=== PATIENT | male | born 1930 | race Asian ===

== ENCOUNTER 2016-09-20 17:09 | Emergency (ER) | payer MEDICARE, MEDICAID ==
[~2016-09-20] VITALS: Ht 175.3 cm; Wt 65.3 kg
[2016-09-20 18:03] VITALS: BP 101/52
[2016-09-20 18:05] LABS: BASOPHILS % (AUTO) 0.6 % (0.0-2.0); EOSINOPHILS % (AUTO) 3.8 % (0.0-3.0); MEAN CORPUSCULAR HEMOGLOBIN 32.2 PG (27.0-31.0); MEAN CORPUSCULAR HGB CONC 34.2 G/DL (32.0-36.0); MEAN CORPUSCULAR VOLUME 94 FL (80-99); MEAN PLATELET VOLUME 5.9 FL (6.5-10.1); MONOCYTES % (AUTO) 10.1 % (1.0-10.0); NEUTROPHILS % (AUTO) 51.4 % (45.0-75.0); PLATELET COUNT 193 K/UL (150-450); RED BLOOD COUNT 3.97 M/UL (4.70-6.10); WHITE BLOOD COUNT 3.9 K/UL (4.8-10.8)
[2016-09-20 18:12] LABS: APPEARANCE,URINE CLOUDY; KETONES,URINE NEGATIVE (NEGATIVE); LEUKOCYTE ESTERASE ,URINE NEGATIVE (NEGATIVE); NITRITE,URINE NEGATIVE (NEGATIVE); PH,URINE 5 (4.5-8.0); PROTEIN,URINE 2+ (NEGATIVE); UROBILINOGEN,URINE NORMAL MG/DL (0.0-1.0)
[2016-09-20 18:13] LABS: BACTERIA,URINE FEW /HPF; RBC,URINE TNTC /HPF (0 - 0); WBC,URINE 0-2 /HPF (0 - 0)
[2016-09-20 18:17] LABS: INR 1.6 (0.9-1.1); PROTHROMBIN TIME 16.3 SEC (9.30-11.50)
[2016-09-20 18:18] LABS: ALANINE AMINOTRANSFERASE 21 U/L (3-41); ALBUMIN/GLOBULIN RATIO 1.5 (1.0-2.7); ANION GAP 15 (5-15); ASPARTATE AMINO TRANSFERASE 24 U/L (5-40); CALCIUM 8.8 mg/dL (8.6-10.2); CARBON DIOXIDE 24 mEQ/L (20-30); CHLORIDE 98 mEQ/L (98-107); CREATININE 1.4 mg/dL (0.7-1.2); HEMOLYSIS 5; LIPASE 66 U/L (< 60); POTASSIUM 4.4 mEQ/L (3.4-4.9); SODIUM 137 mEQ/L (135-145); TOTAL PROTEIN 6.9 g/dL (6.6-8.7)
--- NOTE | 2016-09-20 19:21 | Emergency Room Report ---
History of Present Illness General Chief Complaint: Male Urogenital Problems Source: Patient Present Illness HPI Patient is a 85-year-old male who presented after increased gross hematuria. Patient had gradual onset of symptoms. The was noted to have been seen by urologist and had been started on antibiotics. The patient not having any fever. He had a moderate amount of blood in his urine. Having increased urinary hesitancy. The patient been taking Augmentin. He denied any recent fever or vomiting. Allergies: Coded Allergies: No Known Allergies (Unverified , 09/20/16) Patient History Past Medical History: see triage record Reviewed Nursing Documentation: PMH: Agreed, PSxH: Agreed Nursing Documentation-PMH Past Medical History: No History, Except For Hx Hypertension: Yes Review of Systems All Other Systems: negative except mentioned in HPI Physical Exam Vital Signs Date Time Temp Pulse Resp B/P Pulse Ox O2 Delivery O2 Flow Rate FiO2 09/20/16 17:18 97.5 72 15 112/67 98 Room Air Sp02 EP Interpretation: reviewed, normal General Appearance: normal inspection, well appearing, no apparent distress, alert, GCS 15 Head: atraumatic ENT: normal ENT inspection, hearing grossly normal, normal voice Neck: normal inspection, full range of motion, supple, no bony tend Respiratory: normal inspection, lungs clear, normal breath sounds, no respiratory distress, no retraction, no wheezing Cardiovascular #1: regular rate, rhythm, no edema Gastrointestinal: normal inspection, normal bowel sounds, non tender, soft, no guarding, no hernia, tenderness - suprapubic tenderness mild Genitourinary: no CVA tenderness Musculoskeletal: normal inspection, back normal, normal range of motion Neurologic: normal inspection, alert, oriented x3, responsive, vice president payment III-XII nml as tested, speech normal Psychiatric: normal inspection, judgement/insight normal, mood/affect normal Skin: normal inspection, normal color, no rash Medical Decision Making Diagnostic Impression: Primary Impression: Gross hematuria Additional Impression: Prostatic disease ER Course The patient presented for hematuria. Differential diagnosis included was not limited to renal stone, cystitis, aortic aneurysm, renal artery dissection.CT abdomen pelvis read by radiology showed no hydronephrosis, no renal or ureteral calculi were noted. Patient noted to have a chronic appearing compression fracture of L3 and a mildly prominent prostate. The patient is advised followup with his urologist 1-2 days. Patient is advised to return if any worsening condition or if any changes in status that are concerning or increased difficulty voiding.. Labs Test 09/20/16 17:43 09/20/16 17:52 Urine Color Red Urine Appearance Cloudy Urine pH 5 (4.5-8.0) Urine Specific [place] 1.010 (1.005-1.035) Urine Protein 2+ (NEGATIVE) Urine Glucose (UA) Negative (NEGATIVE) Urine Ketones Negative (NEGATIVE) Urine Occult Blood 5+ (NEGATIVE) Urine Nitrite Negative (NEGATIVE) Urine Bilirubin Negative (NEGATIVE) Urine Urobilinogen Normal MG/DL (0.0-1.0) Urine Leukocyte Esterase Negative (NEGATIVE) Urine RBC Tntc /HPF (0 - 0) Urine WBC 0-2 /HPF (0 - 0) Urine Squamous Epithelial Cells None /LPF (NONE/OCC) Urine Bacteria Few /HPF (NONE) White Blood Count 3.9 K/UL (4.8-10.8) Red Blood Count 3.97 M/UL (4.70-6.10) Hemoglobin 12.8 G/DL (14.2-18.0) Hematocrit 37.3 % (42.0-52.0) Mean Corpuscular Volume 94 FL (80-99) Mean Corpuscular Hemoglobin 32.2 PG (27.0-31.0) Mean Corpuscular Hemoglobin Concent 34.2 G/DL (32.0-36.0) Red Cell Distribution Width 11.0 % (11.6-14.8) Platelet Count 193 K/UL (150-450) Mean Platelet Volume 5.9 FL (6.5-10.1) Neutrophils (%) (Auto) 51.4 % (45.0-75.0) Lymphocytes (%) (Auto) 34.0 % (20.0-45.0) Monocytes (%) (Auto) 10.1 % (1.0-10.0) Eosinophils (%) (Auto) 3.8 % (0.0-3.0) Basophils (%) (Auto) 0.6 % (0.0-2.0) Prothrombin Time 16.3 SEC (9.30-11.50) Prothromb Time International Ratio 1.6 (0.9-1.1) Activated Partial Thromboplast Time 42 SEC (23-33) Sodium Level 137 mEQ/L (135-145) Potassium Level 4.4 mEQ/L (3.4-4.9) Chloride Level 98 mEQ/L (98-107) Carbon Dioxide Level 24 mEQ/L (20-30) Anion Gap 15 (5-15) Blood Urea Nitrogen 32 mg/dL (7-23) Creatinine 1.4 mg/dL (0.7-1.2) Estimat Glomerular Filtration Rate mL/min (>60) Glucose Level 144 mg/dL (74-106) Calcium Level 8.8 mg/dL (8.6-10.2) Total Bilirubin 0.4 mg/dL (0.0-1.2) Aspartate Amino Transf (AST/SGOT) 24 U/L (5-40) Alanine Aminotransferase (ALT/SGPT) 21 U/L (3-41) Alkaline Phosphatase 50 U/L (40-129) Total Protein 6.9 g/dL (6.6-8.7) Albumin 4.2 g/dL (3.5-5.2) Globulin 2.7 g/dL Albumin/Globulin Ratio 1.5 (1.0-2.7) Lipase 66 U/L (< 60) Last Vital Signs Date Time Temp Pulse Resp B/P Pulse Ox O2 Delivery O2 Flow Rate FiO2 09/20/16 18:03 97.9 63 19 101/52 95 Room Air Status: improved Disposition: HOME, SELF-CARE Condition: Stable Michele Barnes Sep 20, 2016 19:21
[2016-09-20] MEDS ORDERED: cefTRIAXone 1 GM in NS 55 ML IVPB ONE (19:30)
[2016-09-20 19:39] VITALS: BP 115/46
[2016-09-20 20:06] VITALS: BP 112/45
--- NOTE | 2016-09-21 08:56 | Diagnostic Imaging Report ---
\H\CT Abdomen and Pelvis Date of service: 09/20/16. Indication: Gross hematuria and pain. Comparison: None available. Technique: Utilizing a multislice CT scanner, a CT of the abdomen and pelvis was performed without intravenous contrast. All CT scans at this facility use dose modulation, iterative reconstruction, and/or weight based dosing when appropriate to reduce radiation dose to as low as reasonably achievable. CTDIvol (mGy): 12 DLP (mGy-cm): 720 Findings: Lack of intravenous contrast limits evaluation of the visceral and vascular structures. The visualized lung bases exhibit mild atelectasis and scarring with a small calcified granuloma in the right lower lobe. The heart is mildly enlarged. Atherosclerotic calcification of the coronary arteries is noted. The liver is unremarkable. The gallbladder is unremarkable. The pancreas, spleen and adrenal glands are unremarkable. No calculus is identified within either kidney, along the expected course of the ureters or within the urinary bladder. There is no evidence of hydronephrosis. Moderate bilateral perirenal stranding suggesting inflammatory change or or scarring is noted. Please correlate with urinalysis to exclude an active urinary tract infection. The urinary bladder is moderately distended and appears grossly unremarkable. The prostate gland appears slightly enlarged and heterogeneous. Scattered diverticulosis without evidence of acute diverticulitis. There is no evidence of obstruction. There is no extraluminal gas or fluid. Probable calcified lymph node is noted in the upper abdomen posteriorly. There is moderate calcified atherosclerotic disease of the the abdominal aorta. Moderate degenerative changes of the thoracolumbar spine noted. There is moderate compression deformity of L3 vertebral body of unknown chronicity. \N\\H\Impression: 1. No evidence of obstructive uropathy, nephroureterolithiasis, or hydronephrosis. Moderate bilateral perinephric stranding is nonspecific but may reflect inflammatory change or scarring. Please correlate with clinical parameters and urinalysis to exclude active infection. 2. Mildly enlarged and heterogeneous prostate gland. Please correlate with physical exam findings and PSA levels. 3. Diverticulosis without evidence of acute diverticulitis. 4. Moderate compression deformity of L3 vertebral body of unknown chronicity. 5. Other nonacute findings as detailed above. \N\
== END 2016-09-20 20:10 | disposition home or self-care (01) ==
LOC: EMR 17:46
DX: R31.0 Gross hematuria (principal); N42.9 Disorder of prostate, unspecified; I10 Essential (primary) hypertension
CPT/HCPCS: 36415; 74176; 80053; 81003; 83690; 85025; 85610; 85730; 96360; 96374; 99284; J0696; J2405

== ENCOUNTER 2016-09-22 17:01 | Inpatient (IN) | payer MEDICARE, MEDICAID ==
[~2016-09-22] VITALS: Ht 177.8 cm; Wt 70.3 kg
[2016-09-22 17:36] VITALS: BP 114/52
--- NOTE | 2016-09-22 17:51 | Emergency Room Report ---
History of Present Illness General Chief Complaint: Male Urogenital Problems Source: Patient Present Illness HPI Patient presents with complaints of urinary retention Along with blood in the urine The patient denies any headache visual changes denies any chest pain or shortness of breath He has increased pressure in the suprapubic area Denies any recent fall or trauma Approximately 2 years ago the patient had some similar symptoms He does have a urologist which is following him There was question of some prostate pathology However the patient is somewhat poor historian regarding his history Denies any back or flank pain Allergies: Coded Allergies: No Known Allergies (Unverified , 09/20/16) Patient History Past Medical History: see triage record Pertinent Family History: none Reviewed Nursing Documentation: PMH: Agreed, PSxH: Agreed Nursing Documentation-PMH Past Medical History: No History, Except For Hx Hypertension: Yes Review of Systems All Other Systems: negative except mentioned in HPI Physical Exam Vital Signs Date Time Temp Pulse Resp B/P Pulse Ox O2 Delivery O2 Flow Rate FiO2 09/22/16 17:22 98.4 74 14 114/52 97 Room Air Sp02 EP Interpretation: reviewed, normal General Appearance: well appearing, no apparent distress Head: normocephalic, atraumatic Eyes: bilateral eye EOMI, bilateral eye PERRL ENT: hearing grossly normal, normal pharynx, TMs + canals normal, uvula midline Neck: full range of motion, supple, no meningismus, no bony tend Respiratory: lungs clear, normal breath sounds, no rhonchi, no respiratory distress, no retraction, no accessory muscle use Cardiovascular #1: normal peripheral pulses, regular rate, rhythm, no edema, no gallop, no JVD, no murmur Gastrointestinal: normal bowel sounds, non tender, soft, no mass, no organomegaly, non-distended, no guarding, no hernia, no pulsatile mass, no rebound Genitourinary: no CVA tenderness Musculoskeletal: normal inspection Neurologic: oriented x3, responsive, wrestling coach III-XII nml as tested, motor strength/ tone normal, sensory intact Psychiatric: mood/affect normal Skin: normal color, no rash, warm/dry, palpation normal Lymphatic: normal inspection, no adenopathy Medical Decision Making Diagnostic Impression: Primary Impression: Renal insufficiency Additional Impressions: Urinary retention Hematuria ER Course Patient's pharmacy was contacted at [phone] There was no contact and there was no picker and packer Given the patient's history examined presentation concerning for multiple differentials patient had CAT scan imaging obtained showing inflammatory changes bilaterally in the kidneys Urine sample does show some white blood cells Pending further inpatient antibiotic coverage Patient also had consult obtained by urology and admitted for further inpatient care Labs Test 09/22/16 17:50 09/22/16 18:10 09/23/16 04:45 09/23/16 05:10 White Blood Count 5.0 K/UL (4.8-10.8) 5.3 K/UL (4.8-10.8) Red Blood Count 4.00 M/UL (4.70-6.10) 3.49 M/UL (4.70-6.10) Hemoglobin 13.1 G/DL (14.2-18.0) 11.3 G/DL (14.2-18.0) Hematocrit 37.9 % (42.0-52.0) 32.9 % (42.0-52.0) Mean Corpuscular Volume 95 FL (80-99) 94 FL (80-99) Mean Corpuscular Hemoglobin 32.7 PG (27.0-31.0) 32.3 PG (27.0-31.0) Mean Corpuscular Hemoglobin Concent 34.5 G/DL (32.0-36.0) 34.3 G/DL (32.0-36.0) Red Cell Distribution Width 11.2 % (11.6-14.8) 11.1 % (11.6-14.8) Platelet Count 226 K/UL (150-450) 178 K/UL (150-450) Mean Platelet Volume 7.3 FL (6.5-10.1) 6.5 FL (6.5-10.1) Neutrophils (%) (Auto) 57.3 % (45.0-75.0) 71.0 % (45.0-75.0) Lymphocytes (%) (Auto) 30.7 % (20.0-45.0) 18.4 % (20.0-45.0) Monocytes (%) (Auto) 8.4 % (1.0-10.0) 7.5 % (1.0-10.0) Eosinophils (%) (Auto) 2.6 % (0.0-3.0) 2.5 % (0.0-3.0) Basophils (%) (Auto) 1.1 % (0.0-2.0) 0.7 % (0.0-2.0) Prothrombin Time 14.0 SEC (9.30-11.50) Prothromb Time International Ratio 1.4 (0.9-1.1) Activated Partial Thromboplast Time 36 SEC (23-33) Sodium Level 139 mEQ/L (135-145) 141 mEQ/L (135-145) Potassium Level 5.3 mEQ/L (3.4-4.9) 4.2 mEQ/L (3.4-4.9) Chloride Level 100 mEQ/L (98-107) 103 mEQ/L (98-107) Carbon Dioxide Level 24 mEQ/L (20-30) 26 mEQ/L (20-30) Anion Gap 15 (5-15) 12 (5-15) Blood Urea Nitrogen 28 mg/dL (7-23) 22 mg/dL (7-23) Creatinine 1.5 mg/dL (0.7-1.2) 1.1 mg/dL (0.7-1.2) Estimat Glomerular Filtration Rate mL/min (>60) mL/min (>60) Glucose Level 100 mg/dL (74-106) 91 mg/dL (74-106) Calcium Level 8.6 mg/dL (8.6-10.2) 8.1 mg/dL (8.6-10.2) Total Bilirubin 0.4 mg/dL (0.0-1.2) 0.4 mg/dL (0.0-1.2) Aspartate Amino Transf (AST/SGOT) 47 U/L (5-40) 26 U/L (5-40) Alanine Aminotransferase (ALT/SGPT) 33 U/L (3-41) 26 U/L (3-41) Alkaline Phosphatase 47 U/L (40-129) 44 U/L (40-129) Total Protein 7.4 g/dL (6.6-8.7) 5.9 g/dL (6.6-8.7) Albumin 4.4 g/dL (3.5-5.2) 3.7 g/dL (3.5-5.2) Globulin 3.0 g/dL 2.2 g/dL Albumin/Globulin Ratio 1.4 (1.0-2.7) 1.6 (1.0-2.7) Lipase 65 U/L (< 60) Urine Color Brown Pale yellow Urine Appearance Cloudy Turbid Urine pH 5 (4.5-8.0) 6.5 (4.5-8.0) Urine Specific [place] 1.015 (1.005-1.035) 1.010 (1.005-1.035) Urine Protein 3+ (NEGATIVE) 2+ (NEGATIVE) Urine Glucose (UA) Negative (NEGATIVE) Negative (NEGATIVE) Urine Ketones 1+ (NEGATIVE) Negative (NEGATIVE) Urine Occult Blood 5+ (NEGATIVE) 5+ (NEGATIVE) Urine Nitrite Negative (NEGATIVE) Negative (NEGATIVE) Urine Bilirubin Negative (NEGATIVE) Negative (NEGATIVE) Urine Urobilinogen 1 MG/DL (0.0-1.0) Normal MG/DL (0.0-1.0) Urine Leukocyte Esterase 2+ (NEGATIVE) 1+ (NEGATIVE) Urine RBC 20-30 /HPF (0 - 0) Tntc /HPF (0 - 0) Urine WBC 10-15 /HPF (0 - 0) 0-2 /HPF (0 - 0) Urine Squamous Epithelial Cells None /LPF (NONE/OCC) None /LPF (NONE/OCC) Urine Amorphous Sediment Few /LPF (NONE) Urine Bacteria Many /HPF (NONE) Few /HPF (NONE) Urine Yeast Moderate /HPF (NONE) Uric Acid 4.1 mg/dL (3.0-7.5) Phosphorus Level 3.1 mg/dL (2.5-4.8) Magnesium Level 2.0 mg/dL (1.7-2.5) Total Creatine Kinase 76 U/L (38-174) Thyroid Stimulating Hormone (TSH) 4.800 uIU/mL (0.300-4.500) Free Thyroxine 1.41 ng/dL (0.86-1.85) Free Triiodothyronine 2.1 pg/mL (2.3-4.2) Urine Eosinophils Few Urine Random Sodium 103 mmol/L Urine Random Chloride 92 mmol/L Urine Potassium Timed 25 mmol/L Rhythm Strip Diag. Results EP Interpretation: yes Rate: 67 Rhythm: NSR, no PVC's, no ectopy CT/MRI/US Diagnostic Results CT/MRI/US Diagnostic Results : Impression Patient had CT abdomen pelvis from last week:1. No evidence of obstructive uropathy, nephroureterolithiasis, or hydronephrosis. Moderate bilateral perinephric stranding is nonspecific but may reflect inflammatory change or scarring. Please correlate with clinical parameters and urinalysis to exclude active infection. 2. Mildly enlarged and heterogeneous prostate gland. Please correlate with physical exam findings and PSA levels. 3. Diverticulosis without evidence of acute diverticulitis. 4. Moderate compression deformity of L3 vertebral body of unknown chronicity. 5. Other nonacute findings as detailed above. \N\ Last Vital Signs Date Time Temp Pulse Resp B/P Pulse Ox O2 Delivery O2 Flow Rate FiO2 09/22/16 17:36 98.4 79 14 114/52 97 Room Air Status: improved Disposition: ADMITTED INPATIENT Condition: Serious Referrals: NON PHYSICIAN (PCP) FLORIN LUNA D.O. Sep 22, 2016 17:51
[2016-09-22 18:21] LABS: BASOPHILS % (AUTO) 1.1 % (0.0-2.0); EOSINOPHILS % (AUTO) 2.6 % (0.0-3.0); LYMPHOCYTES % (AUTO) 30.7 % (20.0-45.0); MEAN CORPUSCULAR HEMOGLOBIN 32.7 PG (27.0-31.0); MEAN CORPUSCULAR HGB CONC 34.5 G/DL (32.0-36.0); MEAN CORPUSCULAR VOLUME 95 FL (80-99); MEAN PLATELET VOLUME 7.3 FL (6.5-10.1); MONOCYTES % (AUTO) 8.4 % (1.0-10.0); NEUTROPHILS % (AUTO) 57.3 % (45.0-75.0); PLATELET COUNT 226 K/UL (150-450); RED CELL DISTRIBUTION WIDTH 11.2 % (11.6-14.8)
[2016-09-22 18:27] LABS: INR 1.4 (0.9-1.1)
[2016-09-22 18:37] LABS: ALANINE AMINOTRANSFERASE 33 U/L (3-41); ALBUMIN/GLOBULIN RATIO 1.4 (1.0-2.7); ANION GAP 15 (5-15); ASPARTATE AMINO TRANSFERASE 47 U/L (5-40); CALCIUM 8.6 mg/dL (8.6-10.2); CARBON DIOXIDE 24 mEQ/L (20-30); CHLORIDE 100 mEQ/L (98-107); CREATININE 1.5 mg/dL (0.7-1.2); HEMOLYSIS 252; LIPASE 65 U/L (< 60); POTASSIUM 5.3 mEQ/L (3.4-4.9); SODIUM 139 mEQ/L (135-145); TOTAL PROTEIN 7.4 g/dL (6.6-8.7)
[2016-09-22 18:44] LABS: APPEARANCE,URINE CLOUDY; KETONES,URINE 1+ (NEGATIVE); LEUKOCYTE ESTERASE ,URINE 2+ (NEGATIVE); NITRITE,URINE NEGATIVE (NEGATIVE); PH,URINE 5 (4.5-8.0); PROTEIN,URINE 3+ (NEGATIVE); UROBILINOGEN,URINE 1 MG/DL (0.0-1.0)
[2016-09-22 19:16] LABS: BACTERIA,URINE MANY /HPF
[2016-09-22 19:17] LABS: AMORPHOUS SEDIMENT,UR FEW /LPF; RBC,URINE 20-30 /HPF (0 - 0); YEAST,URINE MODERATE /HPF
[2016-09-22 20:00] VITALS: BP 115/54
[2016-09-22] MEDS ORDERED: DuoNeb 0.5-3(2.5)mg/3ml neb HHN PRN (21:30)
[2016-09-22] MEDS ORDERED: Nitroglycerin Subl 0.4mg tab (Bottle Of 25) SL PRN (21:30)
[2016-09-22] MEDS ORDERED: Morphine Sulfate 2mg/ml Inj IVP PRN (21:30)
[2016-09-22] MEDS ORDERED: Miralax 17gm pkt ORAL PRN (21:30)
[2016-09-22] MEDS ORDERED: Vancomycin 1gm inj IVPB ONE (23:41)
[2016-09-22] MEDS: Vancomycin 1 GM in D5W 275 ML IVPB SCH (23:52)
[2016-09-23] VITALS (7 sets, daily range): BP systolic 92–129; BP diastolic 45–60
[2016-09-23 05:28] LABS: BASOPHILS % (AUTO) 0.7 % (0.0-2.0); EOSINOPHILS % (AUTO) 2.5 % (0.0-3.0); LYMPHOCYTES % (AUTO) 18.4 % (20.0-45.0); MEAN CORPUSCULAR HEMOGLOBIN 32.3 PG (27.0-31.0); MEAN CORPUSCULAR HGB CONC 34.3 G/DL (32.0-36.0); MEAN CORPUSCULAR VOLUME 94 FL (80-99); MEAN PLATELET VOLUME 6.5 FL (6.5-10.1); MONOCYTES % (AUTO) 7.5 % (1.0-10.0); PLATELET COUNT 178 K/UL (150-450); RED BLOOD COUNT 3.49 M/UL (4.70-6.10); RED CELL DISTRIBUTION WIDTH 11.1 % (11.6-14.8); WHITE BLOOD COUNT 5.3 K/UL (4.8-10.8)
[2016-09-23 06:22] LABS: ALANINE AMINOTRANSFERASE 26 U/L (3-41); ALBUMIN/GLOBULIN RATIO 1.6 (1.0-2.7); ANION GAP 12 (5-15); ASPARTATE AMINO TRANSFERASE 26 U/L (5-40); CALCIUM 8.1 mg/dL (8.6-10.2); CARBON DIOXIDE 26 mEQ/L (20-30); CHLORIDE 103 mEQ/L (98-107); CREATININE 1.1 mg/dL (0.7-1.2); HEMOLYSIS 6; PHOSPHORUS 3.1 mg/dL (2.5-4.8); POTASSIUM 4.2 mEQ/L (3.4-4.9); SODIUM 141 mEQ/L (135-145); TOTAL PROTEIN 5.9 g/dL (6.6-8.7); URIC ACID 4.1 mg/dL (3.0-7.5)
[2016-09-23 06:26] LABS: FREE T3 2.1 pg/mL (2.3-4.2)
[2016-09-23 09:32] LABS: APPEARANCE,URINE TURBID; KETONES,URINE NEGATIVE (NEGATIVE); LEUKOCYTE ESTERASE ,URINE 1+ (NEGATIVE); NITRITE,URINE NEGATIVE (NEGATIVE); PH,URINE 6.5 (4.5-8.0); PROTEIN,URINE 2+ (NEGATIVE); UROBILINOGEN,URINE NORMAL MG/DL (0.0-1.0)
[2016-09-23 09:57] LABS: RBC,URINE TNTC /HPF (0 - 0)
[2016-09-23 09:58] LABS: BACTERIA,URINE FEW /HPF; WBC,URINE 0-2 /HPF (0 - 0)
--- NOTE | 2016-09-23 10:36 | Consultation ---
History of Present Illness General Chief Complaint: Male Urogenital Problems Present Illness HPI recurrent irritative voiding symptoms and hematuria hx. by report patient has urologist as outpatient. currently feels fine, although language barrier is present. Allergies: Coded Allergies: No Known Allergies (Unverified , 09/20/16) Patient History Limited by: language barrier History Provided By: Patient, Medical Record Healthcare decision maker Resuscitation status Full Code Advanced Directive on File Past Medical/Surgical History Past Medical/Surgical History: (1) Urinary retention (2) Hematuria (3) Renal insufficiency Review of Systems Constitutional: Denies: chills, fever, malaise, no symptoms, other, see HPI, sweats, weakness Eye: Denies: acuity changes, blurred vision, discharge, double vision, eye pain , no symptoms, nose congestion, nose pain, other, see HPI, tearing ENT: Denies: ear discharge, ear pain, hearing loss, mouth pain, nasal discharge , no symptoms, nose congestion, nose pain, other, see HPI, throat pain, throat swelling Respiratory: Denies: JAEGER, cough, no symptoms, orthopnea, other, see HPI, shortness of breath, sputum, stridor, wheezing Cardiovascular: Denies: PND, chest pain, edema, no symptoms, other, palpitations, see HPI, syncope Gastrointestinal: Denies: abdominal pain, constipation, diarrhea, hematemesis, melena, nausea, no symptoms, other, see HPI, vomiting Genitourinary: Reports: hematuria Musculoskeletal: Denies: back pain, gout, joint pain, joint swelling, muscle pain, muscle stiffness, no symptoms, other, see HPI Skin: Denies: change in color, change in hair/nails, dryness, lesions, no symptoms, other, rash, see HPI Psychiatric: Denies: HI, SI, anxiety, depressed feelings, emotional problems, hallucinations, no symptoms, other, prior hx, see HPI Neurological: Denies: dizziness, focal weakness, headache, no symptoms, numbness, other, paresthesia, see HPI, seizure, syncope, tingling, tremors Endocrine: Denies: excessive sweating, flushing, increased thirst, increased urine, intolerance to temperature, no symptoms, other, see HPI, unexplained weight loss Hematologic/Lymphatic: Denies: anemia, blood clots, diathesis, easy bleeding, easy bruising, no symptoms, other, see HPI, swollen glands Physical Exam General Appearance: no apparent distress HEENT: atraumatic Respiratory/Chest: lungs clear Abdomen: non tender, soft Genitourinary/Rectal: vega Last 24 Hour Vital Signs Date Time Temp Pulse Resp B/P Pulse Ox O2 Delivery O2 Flow Rate FiO2 09/23/16 08:39 66 18 Room Air 09/23/16 08:00 98.1 65 18 92/45 96 Room Air 09/23/16 04:42 109/56 09/23/16 04:00 97.9 60 18 98/46 95 Room Air 09/23/16 00:00 97.8 59 18 108/51 94 Room Air 09/22/16 20:00 98.1 66 20 115/54 96 Room Air 09/22/16 19:21 89 14 113/87 87 09/22/16 17:36 98.4 79 14 114/52 97 Room Air 09/22/16 17:22 98.4 74 14 114/52 97 Room Air Intake and Output 09/22/16 09/23/16 19:00 07:00 Intake Total 140 ml 1125.0 ml Output Total 80 ml 1350 ml Balance 60 ml -225.0 ml Intake Oral 140 ml IV Total 1125.0 ml Output Urine Total 80 ml 1350 ml # Voids 1 Laboratory Tests Test 09/22/16 17:50 09/22/16 18:10 09/23/16 04:45 09/23/16 05:10 White Blood Count 5.0 K/UL (4.8-10.8) 5.3 K/UL (4.8-10.8) Red Blood Count 4.00 M/UL (4.70-6.10) L 3.49 M/UL (4.70-6.10) L Hemoglobin 13.1 G/DL (14.2-18.0) L 11.3 G/DL (14.2-18.0) L Hematocrit 37.9 % (42.0-52.0) L 32.9 % (42.0-52.0) L Mean Corpuscular Volume 95 FL (80-99) 94 FL (80-99) Mean Corpuscular Hemoglobin 32.7 PG (27.0-31.0) H 32.3 PG (27.0-31.0) H Mean Corpuscular Hemoglobin Concent 34.5 G/DL (32.0-36.0) 34.3 G/DL (32.0-36.0) Red Cell Distribution Width 11.2 % (11.6-14.8) L 11.1 % (11.6-14.8) L Platelet Count 226 K/UL (150-450) 178 K/UL (150-450) Mean Platelet Volume 7.3 FL (6.5-10.1) 6.5 FL (6.5-10.1) Neutrophils (%) (Auto) 57.3 % (45.0-75.0) 71.0 % (45.0-75.0) Lymphocytes (%) (Auto) 30.7 % (20.0-45.0) 18.4 % (20.0-45.0) L Monocytes (%) (Auto) 8.4 % (1.0-10.0) 7.5 % (1.0-10.0) Eosinophils (%) (Auto) 2.6 % (0.0-3.0) 2.5 % (0.0-3.0) Basophils (%) (Auto) 1.1 % (0.0-2.0) 0.7 % (0.0-2.0) Prothrombin Time 14.0 SEC (9.30-11.50) H Prothromb Time International Ratio 1.4 (0.9-1.1) H Activated Partial Thromboplast Time 36 SEC (23-33) H Sodium Level 139 mEQ/L (135-145) 141 mEQ/L (135-145) Potassium Level 5.3 mEQ/L (3.4-4.9) H 4.2 mEQ/L (3.4-4.9) Chloride Level 100 mEQ/L (98-107) 103 mEQ/L (98-107) Carbon Dioxide Level 24 mEQ/L (20-30) 26 mEQ/L (20-30) Anion Gap 15 (5-15) 12 (5-15) Blood Urea Nitrogen 28 mg/dL (7-23) H 22 mg/dL (7-23) Creatinine 1.5 mg/dL (0.7-1.2) H 1.1 mg/dL (0.7-1.2) Estimat Glomerular Filtration Rate mL/min (>60) mL/min (>60) Glucose Level 100 mg/dL (74-106) 91 mg/dL (74-106) Calcium Level 8.6 mg/dL (8.6-10.2) 8.1 mg/dL (8.6-10.2) L Total Bilirubin 0.4 mg/dL (0.0-1.2) 0.4 mg/dL (0.0-1.2) Aspartate Amino Transf (AST/SGOT) 47 U/L (5-40) H 26 U/L (5-40) Alanine Aminotransferase (ALT/SGPT) 33 U/L (3-41) 26 U/L (3-41) Alkaline Phosphatase 47 U/L (40-129) 44 U/L (40-129) Total Protein 7.4 g/dL (6.6-8.7) 5.9 g/dL (6.6-8.7) L Albumin 4.4 g/dL (3.5-5.2) 3.7 g/dL (3.5-5.2) Globulin 3.0 g/dL 2.2 g/dL Albumin/Globulin Ratio 1.4 (1.0-2.7) 1.6 (1.0-2.7) Lipase 65 U/L (< 60) H Urine Color Brown Pale yellow Urine Appearance Cloudy Turbid Urine pH 5 (4.5-8.0) 6.5 (4.5-8.0) Urine Specific [place] 1.015 (1.005-1.035) 1.010 (1.005-1.035) Urine Protein 3+ (NEGATIVE) H 2+ (NEGATIVE) H Urine Glucose (UA) Negative (NEGATIVE) Negative (NEGATIVE) Urine Ketones 1+ (NEGATIVE) H Negative (NEGATIVE) Urine Occult Blood 5+ (NEGATIVE) H 5+ (NEGATIVE) H Urine Nitrite Negative (NEGATIVE) Negative (NEGATIVE) Urine Bilirubin Negative (NEGATIVE) Negative (NEGATIVE) Urine Urobilinogen 1 MG/DL (0.0-1.0) H Normal MG/DL (0.0-1.0) Urine Leukocyte Esterase 2+ (NEGATIVE) H 1+ (NEGATIVE) H Urine RBC 20-30 /HPF (0 - 0) H Tntc /HPF (0 - 0) H Urine WBC 10-15 /HPF (0 - 0) H 0-2 /HPF (0 - 0) Urine Squamous Epithelial Cells None /LPF (NONE/OCC) None /LPF (NONE/OCC) Urine Amorphous Sediment Few /LPF (NONE) H Urine Bacteria Many /HPF (NONE) H Few /HPF (NONE) Urine Yeast Moderate /HPF (NONE) H Urine Osmolality Pending Plasma/Serum Osmolality Pending Uric Acid 4.1 mg/dL (3.0-7.5) Phosphorus Level 3.1 mg/dL (2.5-4.8) Magnesium Level 2.0 mg/dL (1.7-2.5) Total Creatine Kinase 76 U/L (38-174) Thyroid Stimulating Hormone (TSH) 4.800 uIU/mL (0.300-4.500) Free Thyroxine 1.41 ng/dL (0.86-1.85) Free Triiodothyronine 2.1 pg/mL (2.3-4.2) L Cortisol Pending Urine Eosinophils Few Urine Random Sodium 103 mmol/L Urine Random Chloride 92 mmol/L Urine Potassium Timed 25 mmol/L Microbiology Date/Time Source Procedure Growth Status 09/22/16 18:10 Urine,Clean Catch Urine Culture - Preliminary NO GROWTH Resulted Height (Feet): 5 Height (Inches): 10.00 Weight (Pounds): 155 Medications Current Medications Medications (Trade) Dose Ordered Sig/Lidia Route PRN Reason Start Time Stop Time Status Last Admin Dose Admin Acetaminophen (Tylenol) 650 mg Q4H PRN ORAL fever 09/22/16 21:30 10/22/16 21:29 Albuterol/ Ipratropium 3 ml 3 ml Q4H PRN HHN Shortness of Breath 09/22/16 21:30 09/27/16 21:29 Cefepime HCl 2 gm/ Dextrose 110 ml @ 220 mls/hr Q24H IV 09/23/16 22:00 09/30/16 21:59 Morphine Sulfate (Morphine Sulfate) 2 mg Q4H PRN IVP Moderate Pain (Pain Scale 4-6) 09/22/16 21:30 09/29/16 21:29 Nitroglycerin (Ntg) 0.4 mg Q5M PRN SL Prn Chest Pain 09/22/16 21:30 10/22/16 21:29 Ondansetron HCl (Zofran) 4 mg Q6H PRN IVP Nausea & Vomiting 09/22/16 21:30 10/22/16 21:29 Polyethylene Glycol (Miralax) 17 gm DAILYPRN PRN ORAL Constipation 09/22/16 21:30 10/22/16 21:29 Sodium Chloride (Sodium Chloride 1000ml bag) 1,000 ml @ 50 mls/hr Q20H IVLG 09/22/16 22:00 10/22/16 21:59 09/22/16 22:00 Temazepam (Restoril) 15 mg HSPRN PRN ORAL Insomnia 09/22/16 21:30 09/29/16 21:29 Vancomycin HCl (Vanco rx to dose) 1 ea DAILY PRN MISC PER RX PROTOCOL 09/22/16 22:00 10/22/16 21:59 Vancomycin HCl/ Dextrose (Vancomycin/D5W) 275 ml @ 183.3 mls/ hr Q24H IVPB 09/22/16 23:00 09/27/16 22:59 09/22/16 23:[address]: distended bladder, mild bilateral perinpehric stranding. 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 Needs outpatient cystoscopy. Creatinine improved with placement of vega, likely chronic obstruction. Patient supposedly has urologist as outpatient. Recommend starting on Flomax 0.8 mg if not already on it and following up with outpatient urologist. 1. vega in place, dc home with vega 2. flomax 0.8 mg nightly at home 3. follow up with home urologist for cystoscopy. Monster Huerta M.D. Sep 23, 2016 10:36
--- NOTE | 2016-09-23 13:52 | Diagnostic Imaging Report ---
Indication: Abnormal renal function tests, hematuria Technique: Grayscale and duplex images of the kidneys, retroperitoneum, and bladder were obtained. Comparison:Reference made to CT scan January 18, 2017 Findings: Right kidney measures 9.6 cm in length. Left kidney measures 10.6 cm in length. Both kidneys demonstrate normal echogenicity. No hydronephrosis. There is an echogenic focus in the periphery of the left renal sinus, suggestive of a small calculus.. No other focal abnormality. Normal inferior vena cava. Bladder is mostly empty, contains a Holcomb catheter. There is equivocal minimal bladder wall thickening Impression: Negative for hydronephrosis Echogenic focus in the periphery of the left renal sinus. Most likely artifactual, as no left renal calculi are demonstrated on earlier CT scan No findings to suggest etiology of stated clinical history of hematuria Equivocal minimal bladder wall thickening. If real could indicate mild cystitis changes. Correlate with clinical findings
--- NOTE | 2016-09-23 15:27 | Consultation ---
Consult Note Consult Note ID CONSULT: Carol# [id number] Assessment/Plan ASSESSMENT: 85 y/o male with: // Recurrent hematuria r/o UTI, prostatitis - urology following, UCx NGTD - US 09/23: Negative for hydronephrosis. No findings to suggest etiology of stated clinical history of hematuria. Equivocal minimal bladder wall thickening. - CT 09/20: No evidence of obstructive uropathy, nephroureterolithiasis, or hydronephrosis. Moderate bilateral perinephric stranding is nonspecific but may reflect inflammatory change or scarring. Mildly enlarged and heterogeneous prostate gland. // Afebrile without leukocytosis // Obstructive uropathy / urinary retention - Cr improved SP vega - h/o BPH // NKDA // Full Code PLAN: - ok to DC on empiric PO bactrim x10d from ID standpoint. Will continue empiric IV vancomycin, cefepime d# 1 while still inpt pending cultures - check PSA - outpt cystoscopy per urology - f/u cultures - monitor CBC, temperatures - monitor BMP Thanks! Will follow SUSAN CEVALLOS Sep 23, 2016 15:27
[2016-09-23] MEDS ORDERED: Tubing IV Secondary IV ONE (15:50)
[2016-09-23] MEDS ORDERED: D5W 275ml ONE (15:50)
--- NOTE | 2016-09-23 17:31 | History and Physical ---
History of Present Illness General Date patient seen: Sep 23, 2016 Reason for Hospitalization: Male Urogenital Problems Present Illness HPI 85 year old male with BPH presented to ER with CC of hematuria and anuria for a few days. He has increased pressure in the suprapubic area, Approximately 2 years ago the patient had some similar symptoms He was thought to have ATN and UTI and admitted for further work up. Allergies: Coded Allergies: No Known Allergies (Unverified , 09/20/16) Patient History Healthcare decision maker Resuscitation status Full Code Advanced Directive on File Past Medical/Surgical History Past Medical/Surgical History: (1) BPH (benign prostatic hyperplasia) Review of Systems All Other Systems: negative except mentioned in HPI Physical Exam General Appearance: WD/WN Lines, tubes and drains: peripheral, central line HEENT: normocephalic, atraumatic Neck: non-tender, normal alignment Respiratory/Chest: chest wall non-tender, lungs clear Abdomen: normal bowel sounds, non tender Genitourinary/Rectal: normal genital exam Last 24 Hour Vital Signs Date Time Temp Pulse Resp B/P Pulse Ox O2 Delivery O2 Flow Rate FiO2 09/23/16 16:00 98.2 72 16 129/57 97 Room Air 09/23/16 12:00 98.1 64 18 120/55 95 Room Air 09/23/16 08:39 66 18 Room Air 09/23/16 08:00 98.1 65 18 92/45 96 Room Air 09/23/16 04:42 109/56 09/23/16 04:00 97.9 60 18 98/46 95 Room Air 09/23/16 00:00 97.8 59 18 108/51 94 Room Air 09/22/16 20:00 98.1 66 20 115/54 96 Room Air 09/22/16 19:21 89 14 113/87 87 09/22/16 17:36 98.4 79 14 114/52 97 Room Air Intake and Output 09/22/16 09/23/16 19:00 07:00 Intake Total 140 ml 1125.0 ml Output Total 80 ml 1350 ml Balance 60 ml -225.0 ml Intake Oral 140 ml IV Total 1125.0 ml Output Urine Total 80 ml 1350 ml # Voids 1 Laboratory Tests Test 09/22/16 17:50 09/22/16 18:10 09/23/16 04:45 09/23/16 05:10 White Blood Count 5.0 K/UL (4.8-10.8) 5.3 K/UL (4.8-10.8) Red Blood Count 4.00 M/UL (4.70-6.10) L 3.49 M/UL (4.70-6.10) L Hemoglobin 13.1 G/DL (14.2-18.0) L 11.3 G/DL (14.2-18.0) L Hematocrit 37.9 % (42.0-52.0) L 32.9 % (42.0-52.0) L Mean Corpuscular Volume 95 FL (80-99) 94 FL (80-99) Mean Corpuscular Hemoglobin 32.7 PG (27.0-31.0) H 32.3 PG (27.0-31.0) H Mean Corpuscular Hemoglobin Concent 34.5 G/DL (32.0-36.0) 34.3 G/DL (32.0-36.0) Red Cell Distribution Width 11.2 % (11.6-14.8) L 11.1 % (11.6-14.8) L Platelet Count 226 K/UL (150-450) 178 K/UL (150-450) Mean Platelet Volume 7.3 FL (6.5-10.1) 6.5 FL (6.5-10.1) Neutrophils (%) (Auto) 57.3 % (45.0-75.0) 71.0 % (45.0-75.0) Lymphocytes (%) (Auto) 30.7 % (20.0-45.0) 18.4 % (20.0-45.0) L Monocytes (%) (Auto) 8.4 % (1.0-10.0) 7.5 % (1.0-10.0) Eosinophils (%) (Auto) 2.6 % (0.0-3.0) 2.5 % (0.0-3.0) Basophils (%) (Auto) 1.1 % (0.0-2.0) 0.7 % (0.0-2.0) Prothrombin Time 14.0 SEC (9.30-11.50) H Prothromb Time International Ratio 1.4 (0.9-1.1) H Activated Partial Thromboplast Time 36 SEC (23-33) H Sodium Level 139 mEQ/L (135-145) 141 mEQ/L (135-145) Potassium Level 5.3 mEQ/L (3.4-4.9) H 4.2 mEQ/L (3.4-4.9) Chloride Level 100 mEQ/L (98-107) 103 mEQ/L (98-107) Carbon Dioxide Level 24 mEQ/L (20-30) 26 mEQ/L (20-30) Anion Gap 15 (5-15) 12 (5-15) Blood Urea Nitrogen 28 mg/dL (7-23) H 22 mg/dL (7-23) Creatinine 1.5 mg/dL (0.7-1.2) H 1.1 mg/dL (0.7-1.2) Estimat Glomerular Filtration Rate mL/min (>60) mL/min (>60) Glucose Level 100 mg/dL (74-106) 91 mg/dL (74-106) Calcium Level 8.6 mg/dL (8.6-10.2) 8.1 mg/dL (8.6-10.2) L Total Bilirubin 0.4 mg/dL (0.0-1.2) 0.4 mg/dL (0.0-1.2) Aspartate Amino Transf (AST/SGOT) 47 U/L (5-40) H 26 U/L (5-40) Alanine Aminotransferase (ALT/SGPT) 33 U/L (3-41) 26 U/L (3-41) Alkaline Phosphatase 47 U/L (40-129) 44 U/L (40-129) Total Protein 7.4 g/dL (6.6-8.7) 5.9 g/dL (6.6-8.7) L Albumin 4.4 g/dL (3.5-5.2) 3.7 g/dL (3.5-5.2) Globulin 3.0 g/dL 2.2 g/dL Albumin/Globulin Ratio 1.4 (1.0-2.7) 1.6 (1.0-2.7) Lipase 65 U/L (< 60) H Urine Color Brown Pale yellow Urine Appearance Cloudy Turbid Urine pH 5 (4.5-8.0) 6.5 (4.5-8.0) Urine Specific [place] 1.015 (1.005-1.035) 1.010 (1.005-1.035) Urine Protein 3+ (NEGATIVE) H 2+ (NEGATIVE) H Urine Glucose (UA) Negative (NEGATIVE) Negative (NEGATIVE) Urine Ketones 1+ (NEGATIVE) H Negative (NEGATIVE) Urine Occult Blood 5+ (NEGATIVE) H 5+ (NEGATIVE) H Urine Nitrite Negative (NEGATIVE) Negative (NEGATIVE) Urine Bilirubin Negative (NEGATIVE) Negative (NEGATIVE) Urine Urobilinogen 1 MG/DL (0.0-1.0) H Normal MG/DL (0.0-1.0) Urine Leukocyte Esterase 2+ (NEGATIVE) H 1+ (NEGATIVE) H Urine RBC 20-30 /HPF (0 - 0) H Tntc /HPF (0 - 0) H Urine WBC 10-15 /HPF (0 - 0) H 0-2 /HPF (0 - 0) Urine Squamous Epithelial Cells None /LPF (NONE/OCC) None /LPF (NONE/OCC) Urine Amorphous Sediment Few /LPF (NONE) H Urine Bacteria Many /HPF (NONE) H Few /HPF (NONE) Urine Yeast Moderate /HPF (NONE) H Urine Osmolality Pending Plasma/Serum Osmolality Pending Uric Acid 4.1 mg/dL (3.0-7.5) Phosphorus Level 3.1 mg/dL (2.5-4.8) Magnesium Level 2.0 mg/dL (1.7-2.5) Total Creatine Kinase 76 U/L (38-174) Thyroid Stimulating Hormone (TSH) 4.800 uIU/mL (0.300-4.500) Free Thyroxine 1.41 ng/dL (0.86-1.85) Free Triiodothyronine 2.1 pg/mL (2.3-4.2) L Cortisol Pending Urine Eosinophils Few Urine Random Sodium 103 mmol/L Urine Random Chloride 92 mmol/L Urine Potassium Timed 25 mmol/L Microbiology Date/Time Source Procedure Growth Status 09/22/16 18:10 Urine,Clean Catch Urine Culture - Preliminary NO GROWTH Resulted Height (Feet): 5 Height (Inches): 10.00 Weight (Pounds): 155 Medications Current Medications Medications (Trade) Dose Ordered Sig/Lidia Route PRN Reason Start Time Stop Time Status Last Admin Dose Admin Acetaminophen (Tylenol) 650 mg Q4H PRN ORAL fever 09/22/16 21:30 10/22/16 21:29 Albuterol/ Ipratropium 3 ml 3 ml Q4H PRN HHN Shortness of Breath 09/22/16 21:30 09/27/16 21:29 Cefepime HCl 2 gm/ Dextrose 110 ml @ 220 mls/hr Q24H IV 09/23/16 22:00 09/30/16 21:59 Morphine Sulfate (Morphine Sulfate) 2 mg Q4H PRN IVP Moderate Pain (Pain Scale 4-6) 09/22/16 21:30 09/29/16 21:29 Nitroglycerin (Ntg) 0.4 mg Q5M PRN SL Prn Chest Pain 09/22/16 21:30 10/22/16 21:29 Ondansetron HCl (Zofran) 4 mg Q6H PRN IVP Nausea & Vomiting 09/22/16 21:30 10/22/16 21:29 Polyethylene Glycol (Miralax) 17 gm DAILYPRN PRN ORAL Constipation 09/22/16 21:30 10/22/16 21:29 Sodium Chloride (Sodium Chloride 1000ml bag) 1,000 ml @ 50 mls/hr Q20H IVLG 09/22/16 22:00 10/22/16 21:59 09/22/16 22:00 Temazepam (Restoril) 15 mg HSPRN PRN ORAL Insomnia 09/22/16 21:30 09/29/16 21:29 Vancomycin HCl (Vanco rx to dose) 1 ea DAILY PRN MISC PER RX PROTOCOL 09/22/16 22:00 10/22/16 21:59 Vancomycin HCl/ Dextrose (Vancomycin/D5W) 275 ml @ 183.3 mls/ hr Q24H IVPB 09/22/16 23:00 09/27/16 22:59 09/22/16 23:52 Assessment/Plan Problem List: (1) Hematuria ICD Codes: R31.9 - Hematuria, unspecified SNOMED: 42368347 (2) UTI (urinary tract infection) ICD Codes: N39.0 - Urinary tract infection, site not specified SNOMED: 87620221 (3) Sepsis ICD Codes: A41.9 - Sepsis, unspecified organism SNOMED: 93775812 (4) ATN (acute tubular necrosis) ICD Codes: N17.0 - Acute kidney failure with tubular necrosis SNOMED: 41380372 (5) BPH (benign prostatic hyperplasia) ICD Codes: N40.0 - Benign prostatic hyperplasia without lower urinary tract symptoms SNOMED: 195354867, 385216512 Assessment/Plan IV fluids Iv antibiotics f/u Urology evaluation check electrolytes check cultures. SERGIO STEARNS Sep 23, 2016 17:31
--- NOTE | 2016-09-23 19:48 | Consultation ---
DATE OF CONSULTATION: 09/23/2016 INFECTIOUS DISEASE CONSULTATION REQUESTING PHYSICIAN: Jose Whelan M.D. REASON FOR CONSULTATION: Urinary tract infection. HISTORY OF PRESENT ILLNESS: This is an 85-year-old male with a history of BPH, admitted on 09/22/2016 with hematuria and associated renal insufficiency, now improved. No fevers or leukocytosis. Urine culture is no growth to date. Renal ultrasound was negative for hydronephrosis. Recent CT of abdomen and pelvis shows no obstructive uropathy, stones, or hydronephrosis and mildly enlarged heterogenous prostate gland. The patient has been started on empiric IV vancomycin and cefepime and ID now consulted to assist in management. PAST MEDICAL HISTORY: 1. Diverticulosis. 2. BPH. 3. Degenerative joint disease. PAST SURGICAL HISTORY: None. ALLERGIES: No known drug allergies. MEDICATIONS: 1. Intravenous vancomycin day #1. 2. Intravenous cefepime day #1. FAMILY HISTORY: Noncontributory. SOCIAL HISTORY: The patient lives locally. Denies tobacco, alcohol, or illicit drug abuse. REVIEW OF SYSTEMS: As per history present illness. Ten systems reviewed. All pertinent positives and negatives noted. PHYSICAL EXAMINATION: VITAL SIGNS: Maximum temperature 98.1 degrees, blood pressure 120/55, heart rate in the 60s, respiratory rate 18, and saturating 95% on room air. GENERAL: No apparent distress. Nontoxic appearing. CARDIOVASCULAR: Regular rate and rhythm. No murmurs. PULMONARY: Clear to auscultation bilaterally. ABDOMINAL: Bowel sounds present. Soft, nondistended, and nontender. Holcomb catheter in place. EXTREMITIES: No edema. LABORATORY DATA: White blood cell count 5.3, hemoglobin 11.3, and platelets 178,000. Sodium 141, potassium 4.2, chloride 103, bicarbonate 26, BUN 22, and creatinine 1.1 decreased from 1.5. MICROBIOLOGY: On 09/22/2016, urine culture no growth to date. IMAGING: Reviewed. ASSESSMENT: 1. Recurrent hematuria rule out urinary tract infection and prostatitis. Urine culture is no growth to date. Urology is following and has recommended outpatient cystoscopy. Ultrasound is negative for hydronephrosis and no findings to suggest etiology of stated clinical history of hematuria. Equivocal minimal block of bladder wall thickening. Recent CT performed on 09/20/2016 shows no evidence of obstructive uropathy, nephro-urolithiasis, or hydronephrosis. Moderate bilateral perinephric stranding is nonspecific but may reflect inflammatory change or scarring. Mildly enlarged heterogenous prostate gland. 2. Afebrile without leukocytosis. 3. Obstructive uropathy and urinary retention. Creatinine has improved after Holcomb catheter placement. He has evidence of benign prostatic hypertrophy. 4. No known drug allergies. 5. Full Code. PLAN: 1. Okay to discharge on empiric oral Bactrim x10 days from an ID standpoint. We will continue empiric IV vancomycin and cefepime day #1 while still inpatient pending cultures. 2. Check PSA. 3. Outpatient cystoscopy per urology. 4. Follow up cultures. 5. Monitor CBC and temperatures. 6. Monitor BMP. Thank you. We will follow. Willy Zavala M.D. DR: OZZIE/Carol JOB#: [id number] CC: Jose Whelan M.D.; Fax#: [phone] Paredes M.D; Fax#: [phone]
[2016-09-23] MEDS: Cefepime HCl 2 GM in D5W 110 ML IV SCH (21:10)
[2016-09-23] MEDS: Vancomycin 1 GM in D5W 275 ML IVPB SCH (22:02)
[2016-09-24] VITALS: BP 127/50
[2016-09-24 04:00] VITALS: BP 119/52
[2016-09-24 06:13] LABS: CORTISOL LC 6.1 ug/dL (.)
[2016-09-24 06:53] LABS: BASOPHILS % (AUTO) 0.6 % (0.0-2.0); EOSINOPHILS % (AUTO) 2.3 % (0.0-3.0); MEAN CORPUSCULAR HEMOGLOBIN 32.8 PG (27.0-31.0); MEAN CORPUSCULAR HGB CONC 34.7 G/DL (32.0-36.0); MEAN CORPUSCULAR VOLUME 95 FL (80-99); MEAN PLATELET VOLUME 6.4 FL (6.5-10.1); MONOCYTES % (AUTO) 9.9 % (1.0-10.0); NEUTROPHILS % (AUTO) 67.2 % (45.0-75.0); PLATELET COUNT 198 K/UL (150-450); RED BLOOD COUNT 3.68 M/UL (4.70-6.10); RED CELL DISTRIBUTION WIDTH 11.1 % (11.6-14.8); WHITE BLOOD COUNT 5.1 K/UL (4.8-10.8)
[2016-09-24 07:29] LABS: CRP QUANT 0.8 mg/dL (< 0.5); PHOSPHORUS 3.2 mg/dL (2.5-4.8)
[2016-09-24 07:33] LABS: PSA TOTAL 2.5 ng/mL (< 4.5)
[2016-09-24 07:50] LABS: ALANINE AMINOTRANSFERASE 24 U/L (3-41); ALBUMIN/GLOBULIN RATIO 1.5 (1.0-2.7); ANION GAP 14 (5-15); ASPARTATE AMINO TRANSFERASE 22 U/L (5-40); CALCIUM 8.6 mg/dL (8.6-10.2); CARBON DIOXIDE 24 mEQ/L (20-30); CHLORIDE 105 mEQ/L (98-107); HEMOLYSIS 5; POTASSIUM 4.2 mEQ/L (3.4-4.9); SODIUM 143 mEQ/L (135-145); TOTAL PROTEIN 6.3 g/dL (6.6-8.7)
[2016-09-24 08:00] VITALS: BP 107/49
[2016-09-24 09:25] LABS: ERYTHROCYTE SEDIMENTATION RATE 18 MM/HR (0-30)
[2016-09-24 12:00] VITALS: BP 115/55
--- NOTE | 2016-09-24 14:37 | Infectious Diseases Prog Note ---
Assessment/Plan Assessment/Plan ASSESSMENT: 85 y/o male with: // Recurrent hematuria r/o UTI, prostatitis - urology following, UCx NGTD - US 09/23: Negative for hydronephrosis. No findings to suggest etiology of stated clinical history of hematuria. Equivocal minimal bladder wall thickening. - CT 09/20: No evidence of obstructive uropathy, nephroureterolithiasis, or hydronephrosis. Moderate bilateral perinephric stranding is nonspecific but may reflect inflammatory change or scarring. Mildly enlarged and heterogeneous prostate gland. - PSA WNL // Afebrile without leukocytosis // Obstructive uropathy / urinary retention - Cr improved SP vega - h/o BPH // NKDA // Full Code PLAN: - ok to DC on empiric PO bactrim x9d from ID standpoint. Will continue empiric IV vancomycin, cefepime d# 2 while still inpt pending cultures - outpt cystoscopy per urology - f/u cultures - monitor CBC, temperatures - monitor BMP Subjective Allergies: Coded Allergies: No Known Allergies (Unverified , 09/20/16) Subjective remains afebrile. comfortable Objective Vital Signs Last 24 Hour Vital Signs Date Time Temp Pulse Resp B/P Pulse Ox O2 Delivery O2 Flow Rate FiO2 09/24/16 12:00 97.4 61 18 115/55 94 Room Air 09/24/16 08:00 97.9 69 18 107/49 96 Room Air 09/24/16 07:57 67 18 Room Air 09/24/16 04:00 97.7 67 20 119/52 99 Room Air 09/24/16 00:00 97.3 63 18 127/50 96 Room Air 09/23/16 20:00 98.6 69 18 124/60 96 Room Air 09/23/16 19:30 70 20 Room Air 21 09/23/16 16:00 98.2 72 16 129/57 97 Room Air Height (Feet): 5 Height (Inches): 10.00 Weight (Pounds): 155 General Appearance: no acute distress Respiratory/Chest: no respiratory distress Cardiovascular: normal rate, regular rhythm Abdomen: normal bowel sounds, soft, non tender, non distended Microbiology Date/Time Source Procedure Growth Status 09/22/16 18:10 Urine,Clean Catch Urine Culture - Preliminary NO GROWTH AFTER 24 HOURS Resulted Laboratory Tests Test 09/24/16 04:55 White Blood Count 5.1 K/UL (4.8-10.8) Red Blood Count 3.68 M/UL (4.70-6.10) L Hemoglobin 12.1 G/DL (14.2-18.0) L Hematocrit 34.8 % (42.0-52.0) L Mean Corpuscular Volume 95 FL (80-99) Mean Corpuscular Hemoglobin 32.8 PG (27.0-31.0) H Mean Corpuscular Hemoglobin Concent 34.7 G/DL (32.0-36.0) Red Cell Distribution Width 11.1 % (11.6-14.8) L Platelet Count 198 K/UL (150-450) Mean Platelet Volume 6.4 FL (6.5-10.1) L Neutrophils (%) (Auto) 67.2 % (45.0-75.0) Lymphocytes (%) (Auto) 20.0 % (20.0-45.0) Monocytes (%) (Auto) 9.9 % (1.0-10.0) Eosinophils (%) (Auto) 2.3 % (0.0-3.0) Basophils (%) (Auto) 0.6 % (0.0-2.0) Erythrocyte Sedimentation Rate 18 MM/HR (0-30) Sodium Level 143 mEQ/L (135-145) Potassium Level 4.2 mEQ/L (3.4-4.9) Chloride Level 105 mEQ/L (98-107) Carbon Dioxide Level 24 mEQ/L (20-30) Anion Gap 14 (5-15) Blood Urea Nitrogen 17 mg/dL (7-23) Creatinine 1.0 mg/dL (0.7-1.2) Estimat Glomerular Filtration Rate mL/min (>60) Glucose Level 86 mg/dL (74-106) Calcium Level 8.6 mg/dL (8.6-10.2) Phosphorus Level 3.2 mg/dL (2.5-4.8) Magnesium Level 2.0 mg/dL (1.7-2.5) Total Bilirubin 0.6 mg/dL (0.0-1.2) Aspartate Amino Transf (AST/SGOT) 22 U/L (5-40) Alanine Aminotransferase (ALT/SGPT) 24 U/L (3-41) Alkaline Phosphatase 47 U/L (40-129) C-Reactive Protein, Quantitative 0.8 mg/dL (< 0.5) H Total Protein 6.3 g/dL (6.6-8.7) L Albumin 3.8 g/dL (3.5-5.2) Globulin 2.5 g/dL Albumin/Globulin Ratio 1.5 (1.0-2.7) Prostate Specific Antigen 2.5 ng/mL (< 4.5) Free Prostate Specific Antigen Pending Percent Free Prostate Specific Ag Pending Prostate Specific Antigen Total Pending Current Medications Medications (Trade) Dose Ordered Sig/Lidia Route PRN Reason Start Time Stop Time Status Last Admin Dose Admin Acetaminophen (Tylenol) 650 mg Q4H PRN ORAL fever 09/22/16 21:30 10/22/16 21:29 Albuterol/ Ipratropium 3 ml 3 ml Q4H PRN HHN Shortness of Breath 09/22/16 21:30 09/27/16 21:29 Cefepime HCl 2 gm/ Dextrose 110 ml @ 220 mls/hr Q24H IV 09/23/16 22:00 09/30/16 21:59 09/23/16 21:10 Morphine Sulfate (Morphine Sulfate) 2 mg Q4H PRN IVP Moderate Pain (Pain Scale 4-6) 09/22/16 21:30 09/29/16 21:29 Nitroglycerin (Ntg) 0.4 mg Q5M PRN SL Prn Chest Pain 09/22/16 21:30 10/22/16 21:29 Ondansetron HCl (Zofran) 4 mg Q6H PRN IVP Nausea & Vomiting 09/22/16 21:30 10/22/16 21:29 Polyethylene Glycol (Miralax) 17 gm DAILYPRN PRN ORAL Constipation 09/22/16 21:30 10/22/16 21:29 Sodium Chloride (Sodium Chloride 1000ml bag) 1,000 ml @ 50 mls/hr Q20H IVLG 09/22/16 22:00 10/22/16 21:59 09/23/16 17:35 Temazepam (Restoril) 15 mg HSPRN PRN ORAL Insomnia 09/22/16 21:30 09/29/16 21:29 Vancomycin HCl (Vanco rx to dose) 1 ea DAILY PRN MISC PER RX PROTOCOL 09/22/16 22:00 10/22/16 21:59 Vancomycin HCl/ Dextrose (Vancomycin/D5W) 275 ml @ 183.3 mls/ hr Q24H IVPB 09/22/16 23:00 09/27/16 22:59 09/23/16 22:02 SUSAN CEVALLOS Sep 24, 2016 14:37
[2016-09-24 16:00] VITALS: BP 118/50
[2016-09-24 20:00] VITALS: BP 135/58
[2016-09-24] MEDS: Cefepime HCl 2 GM in D5W 110 ML IV SCH (20:56)
--- NOTE | 2016-09-24 21:29 | Pulmonology Progress Note ---
Assessment/Plan Problems: (1) Hematuria (2) UTI (urinary tract infection) (3) Sepsis (4) ATN (acute tubular necrosis) (5) BPH (benign prostatic hyperplasia) Assessment/Plan Assessment/Plan Problem List: Assessment/Plan IV fluids Iv antibiotics f/u Urology evaluation check electrolytes check cultures. Subjective ROS Limited/Unobtainable: Yes Constitutional: Reports: anorexia, fatigue Genitourinary: Reports: dysuria, frequency, hematuria, nocturia, urgency Neurologic: Reports: confusion, weakness Allergies: Coded Allergies: No Known Allergies (Unverified , 09/20/16) Objective Last 24 Hour Vital Signs Date Time Temp Pulse Resp B/P Pulse Ox O2 Delivery O2 Flow Rate FiO2 09/24/16 20:00 97.7 69 20 135/58 95 Room Air 09/24/16 16:00 98.2 60 16 118/50 96 Room Air 09/24/16 12:00 97.4 61 18 115/55 94 Room Air 09/24/16 08:00 97.9 69 18 107/49 96 Room Air 09/24/16 07:57 67 18 Room Air 21 09/24/16 04:00 97.7 67 20 119/52 99 Room Air 09/24/16 00:00 97.3 63 18 127/50 96 Room Air Intake and Output 09/23/16 09/24/16 19:00 07:00 Intake Total 980 ml 1230.0 ml Output Total 1200 ml 2850 ml Balance -220 ml -1620.0 ml Intake Oral 480 ml 360 ml IV Total 500 ml 870.0 ml Output Urine Total 1200 ml 2850 ml General Appearance: no acute distress HEENT: normocephalic, atraumatic, anicteric, PERRL Respiratory/Chest: chest wall non-tender, decreased breath sounds, accessory muscle use Cardiovascular: normal peripheral pulses, normal rate, regular rhythm, no JVD Abdomen: normal bowel sounds, soft, non tender, no organomegaly, non distended Genitourinary: normal external genitalia Extremities: no cyanosis Skin: rash, lesions Neurologic/Psychiatric: hand weaver II-XII grossly normal, responsive, disoriented Microbiology Date/Time Source Procedure Growth Status 09/22/16 18:10 Urine,Clean Catch Urine Culture - Preliminary NO GROWTH AFTER 24 HOURS Resulted Laboratory Tests 09/24/16 04:55: White Blood Count 5.1, Red Blood Count 3.68L, Hemoglobin 12.1L, Hematocrit 34.8L , Mean Corpuscular Volume 95, Mean Corpuscular Hemoglobin 32.8H, Mean Corpuscular Hemoglobin Concent 34.7, Red Cell Distribution Width 11.1L, Platelet Count 198, Mean Platelet Volume 6.4L, Neutrophils (%) (Auto) 67.2, Lymphocytes (%) (Auto) 20.0, Monocytes (%) (Auto) 9.9, Eosinophils (%) (Auto) 2.3, Basophils (%) (Auto) 0.6, Erythrocyte Sedimentation Rate 18, Sodium Level 143, Potassium Level 4.2, Chloride Level 105, Carbon Dioxide Level 24, Anion Gap 14, Blood Urea Nitrogen 17, Creatinine 1.0, Estimat Glomerular Filtration Rate , Glucose Level 86, Calcium Level 8.6, Phosphorus Level 3.2, Magnesium Level 2.0, Total Bilirubin 0.6, Aspartate Amino Transf (AST/SGOT) 22, Alanine Aminotransferase (ALT/SGPT) 24, Alkaline Phosphatase 47, C-Reactive Protein, Quantitative 0.8H, Total Protein 6.3L, Albumin 3.8, Globulin 2.5, Albumin/ Globulin Ratio 1.5, Prostate Specific Antigen 2.5, Free Prostate Specific Antigen [Pending], Percent Free Prostate Specific Ag [Pending], Prostate Specific Antigen Total [Pending] Current Medications Medications (Trade) Dose Ordered Sig/Lidia Route PRN Reason Start Time Stop Time Status Last Admin Dose Admin Acetaminophen (Tylenol) 650 mg Q4H PRN ORAL fever 09/22/16 21:30 10/22/16 21:29 Albuterol/ Ipratropium 3 ml 3 ml Q4H PRN HHN Shortness of Breath 09/22/16 21:30 09/27/16 21:29 Cefepime HCl 2 gm/ Dextrose 110 ml @ 220 mls/hr Q24H IV 09/23/16 22:00 09/30/16 21:59 09/24/16 20:56 Morphine Sulfate (Morphine Sulfate) 2 mg Q4H PRN IVP Moderate Pain (Pain Scale 4-6) 09/22/16 21:30 09/29/16 21:29 Nitroglycerin (Ntg) 0.4 mg Q5M PRN SL Prn Chest Pain 09/22/16 21:30 10/22/16 21:29 Ondansetron HCl (Zofran) 4 mg Q6H PRN IVP Nausea & Vomiting 09/22/16 21:30 10/22/16 21:29 Polyethylene Glycol (Miralax) 17 gm DAILYPRN PRN ORAL Constipation 09/22/16 21:30 10/22/16 21:29 Sodium Chloride (Sodium Chloride 1000ml bag) 1,000 ml @ 50 mls/hr Q20H IVLG 09/22/16 22:00 10/22/16 21:59 09/23/16 17:35 Temazepam (Restoril) 15 mg HSPRN PRN ORAL Insomnia 09/22/16 21:30 09/29/16 21:29 Vancomycin HCl (Vanco rx to dose) 1 ea DAILY PRN MISC PER RX PROTOCOL 09/22/16 22:00 10/22/16 21:59 Vancomycin HCl/ Dextrose (Vancomycin/D5W) 275 ml @ 183.3 mls/ hr Q24H IVPB 09/22/16 23:00 09/27/16 22:59 09/23/16 22:02 SERGIO STEARNS Sep 24, 2016 21:28
[2016-09-24] MEDS: Vancomycin 1 GM in D5W 275 ML IVPB SCH (22:28)
[2016-09-25] VITALS: BP 119/50
[2016-09-25 04:00] VITALS: BP 119/48
[2016-09-25 08:11] LABS: PSA % FREE 22.9 % (.); PSA FREE 0.55 ng/mL; PSA TOTAL 2.4 ng/mL (0.0-4.0)
[2016-09-25 08:24] VITALS: BP 129/52
[2016-09-25] MEDS ORDERED: BACTRIM DS TAB1 EAC1 ORAL (08:32)
[2016-09-25] MEDS ORDERED: NS Irrig 4000ml IRRIG ONE (08:59)
[2016-09-25] MEDS ORDERED: Sterile Water Irrig 1000ml IRRIG ONE (08:59)
--- NOTE | 2016-09-25 12:13 | Diagnostic Imaging Report ---
APPROVED REPORT CPT Code: 22101 Present Symptoms Comments: Abnormal labs BILATERAL: Imaging reveals a patent deep venous system bilaterally. There is no evidence of thrombus within the femoral, popliteal or tibial segments. The greater saphenous veins are also within normal limits. Doppler indicates normal spontaneous flow within these segments.
--- NOTE | 2016-09-26 11:22 | Discharge Summary ---
Discharge Summary Hospital Course Date of Admission Sep 22, 2016 at 18:00 Date of Discharge Sep 25, 2016 at 09:00 Admitting Diagnosis urinary retension, renal insufficiency MARK Leonard is a 85 year old male who was admitted on Sep 22, 2016 at 18:00 for Urinary Retension,Renal Insufficiency Hospital Course [id number] Discharge Discharge Disposition Patient was discharged to Home (01) Discharge Diagnoses: Jo Carbajal NP Sep 26, 2016 11:22
--- NOTE | 2016-09-26 23:18 | Discharge Summary 2 SIG ---
DATE OF ADMISSION: 09/22/2016 DATE OF DISCHARGE: 09/25/2016 CONSULTANTS: 1. Willy Zavala M.D. 2. Monster Huerta M.D. BRIEF HOSPITAL COURSE: The patient is an 85-year-old male with history of BPH, presented to ED complaining of hematuria and anuria for few days with increased pressure in the suprapubic area. He had similar symptoms 2 years ago. On evaluation at ED, creatinine was elevated. The urine RBC 20 to 30, urine WBC 10 to 15. He was admitted for further workup. He was seen by Urology. The patient has BPH with UTI with hematuria and was recommended outpatient cystoscopy. Holcomb catheter was inserted and was started on Flomax 0.8 mg. He was given empiric IV vancomycin and cefepime by Infectious Disease specialist. Urine culture did not isolate any growth. Renal ultrasound was negative for hydronephrosis. No findings suggestive of etiology of stated clinical history of hematuria with equivocal minimal bladder wall thickening. CT scan showed no evidence of obstructive uropathy with nonspecific perinephric stranding. The PSA was within normal limits. He was cleared for discharge to continue po Bactrim for 9 more days as outpatient. The patient was discharged home. FINAL DIAGNOSES: 1. Hematuria. 2. Benign prostatic hypertrophy. 3. Urinary tract infection. 4. Acute tubular necrosis. 5. Urinary retention. Jose Whelan M.D. I have been assigned to dictate discharge summary on this account and I was not involved in the patient's management. Jo Carbajal N.P. DR: Maximo JOB#: [id number] CC: ARMANDO
== END 2016-09-25 09:00 | disposition home or self-care (01) | DRG 689 ==
LOC: EMR 17:38 → 4W 18:00 → EDBEDREQ 19:12 → 4W 23:30
DX: N39.0 Urinary tract infection, site not specified (principal); N17.0 Acute kidney failure with tubular necrosis; R31.9 Hematuria, unspecified; N40.1 Benign prostatic hyperplasia with lower urinary tract symptoms; R33.8 Other retention of urine; K57.90 Diverticulosis of intestine, part unspecified, without perforation or abscess without bleeding
CPT/HCPCS: 36415; 76775; 80053; 81001; 81003; 82436; 82533; 82550; 83690; 83735; 83930; 83935; 84100; 84133; 84153; 84154; 84300; 84439; 84443; 84481; 84550; 85025; 85610; 85651; 85730; 86140; 87081; 87086; 89050; 93970; 94664

== ENCOUNTER 2016-10-08 11:34 | Emergency (ER) | payer MEDICARE, MEDICAID ==
[~2016-10-08] VITALS: Ht 177.8 cm; Wt 70.3 kg
[~2016-10-08 11:34] MED LIST: BACTRIM DS TAB1 EAC1 ORAL
[2016-10-08 12:16] VITALS: BP 111/64
--- NOTE | 2016-10-08 13:11 | Emergency Room Report ---
History of Present Illness General Chief Complaint: Male Urogenital Problems Present Illness HPI 86-year-old no presents emergency department complaining of gross hematuria since yesterday. Patient reports with that he has had 2 prior episodes and visits here in the emergency department for hematuria 1 she was diagnosed with infection, on a separate occasion he was admitted. Patient does have the outside urologist. he denies pain patient denies difficulty with urination. He states he currently takes Flomax. Denies dysuria denies nausea vomiting fevers chills. Denies abdominal pain. Patient reports intermittent dizziness since noticing the blood. Patient denies weakness. Denies CP, Palpitations, LOC , AMS, dizziness, Changes in Vision, Sensation, paresthesias, or a sudden severe headache. Allergies: Coded Allergies: No Known Allergies (Unverified , 09/20/16) Patient History Past Medical History: see triage record Past Surgical History: none Pertinent Family History: none Immunizations: UTD Reviewed Nursing Documentation: PMH: Agreed, PSxH: Agreed Nursing Documentation-PMH Hx Cardiac Problems: No - unspecified prostate problem Hx Hypertension: Yes Hx Cancer: No Hx Gastrointestinal Problems: No Hx Neurological Problems: No Review of Systems All Other Systems: negative except mentioned in HPI Physical Exam Vital Signs Date Time Temp Pulse Resp B/P Pulse Ox O2 Delivery O2 Flow Rate FiO2 10/08/16 11:51 98.1 77 18 111/64 97 Room Air Sp02 EP Interpretation: reviewed, normal General Appearance: no apparent distress, alert, GCS 15, non-toxic Head: normocephalic, atraumatic Eyes: bilateral eye PERRL, bilateral eye normal inspection ENT: hearing grossly normal, normal pharynx, no angioedema, normal voice Neck: full range of motion, supple/symm/no masses Respiratory: lungs clear, normal breath sounds, speaking full sentences Cardiovascular #1: regular rate, rhythm, no edema Gastrointestinal: normal bowel sounds, non tender, soft, no guarding, no rebound Rectal: deferred Genitourinary: normal inspection, no CVA tenderness, penis normal, scrotum normal, other - no obvious signs of hematuria Musculoskeletal: gait/station normal Neurologic: alert, oriented x3, responsive, motor strength/tone normal, sensory intact, speech normal Psychiatric: judgement/insight normal, memory normal, mood/affect normal, no suicidal/homicidal ideation Skin: normal color, no rash, warm/dry, well hydrated Lymphatic: no adenopathy Medical Decision Making PA Attestation Dr. Velez is my supervising Physician whom patient management has been discussed with. Diagnostic Impression: Primary Impression: UTI (urinary tract infection) Qualified Codes: N30.01 - Acute cystitis with hematuria Additional Impression: Cystitis with hematuria ER Course 86-year-old no presents emergency department complaining of gross hematuria since yesterday. Patient reports with that he has had 2 prior episodes and visits here in the emergency department for hematuria 1 she was diagnosed with infection, on a separate occasion he was admitted. Patient does have the outside urologist. he denies pain patient denies difficulty with urination. He states he currently takes Flomax. Denies dysuria denies nausea vomiting fevers chills. Denies abdominal pain. Patient reports intermittent dizziness since noticing the blood. Patient denies weakness. Review of this pt. prior visits here in the ED: pt. has Hx of BPH, and has had two recent CT's of the abdomen performed that do not show significant intra- abdominal process. prior admission was secondary to urinary retention. Ddx considered but are not limited to The patient presented for hematuria. Differential diagnosis included was not limited to renal stone, cystitis, aortic aneurysm, renal artery dissection. Vital signs: are WNL, pt. is afebrile H&PE are most consistent with hematuria will r/o acute process or anemia requiring transfusion. ORDERS: -UA: 5+ RBC's, Nitrite positive, TNTC WBC's and Leukocytes with few bacteria- indicating infection, acute cystitis with hematuria. -CBC: unremarkable ED INTERVENTIONS: None required at this time. The patient is advised followup with his urologist 1-2 days. Patient is advised to return if any worsening condition or if any changes in status that are concerning or increased difficulty voiding.. DISCHARGE: At this time pt. is stable for d/c to home. Will provide printed patient care instructions, and any necessary prescriptions. Care plan and follow up instructions have been discussed with the patient prior to discharge. Labs Test 10/08/16 12:20 10/08/16 12:30 Urine Color [place] Urine Appearance Turbid Urine pH 6.5 (4.5-8.0) Urine Specific [place] 1.015 (1.005-1.035) Urine Protein 3+ (NEGATIVE) Urine Glucose (UA) Negative (NEGATIVE) Urine Ketones 1+ (NEGATIVE) Urine Occult Blood 5+ (NEGATIVE) Urine Nitrite Positive (NEGATIVE) Urine Bilirubin Negative (NEGATIVE) Urine Urobilinogen Normal MG/DL (0.0-1.0) Urine Leukocyte Esterase 1+ (NEGATIVE) Urine RBC Tntc /HPF (0 - 0) Urine WBC 2-4 /HPF (0 - 0) Urine Squamous Epithelial Cells Few /LPF (NONE/OCC) Urine Bacteria Moderate /HPF (NONE) White Blood Count 4.2 K/UL (4.8-10.8) Red Blood Count 4.21 M/UL (4.70-6.10) Hemoglobin 13.4 G/DL (14.2-18.0) Hematocrit 40.5 % (42.0-52.0) Mean Corpuscular Volume 96 FL (80-99) Mean Corpuscular Hemoglobin 31.9 PG (27.0-31.0) Mean Corpuscular Hemoglobin Concent 33.2 G/DL (32.0-36.0) Red Cell Distribution Width 12.5 % (11.6-14.8) Platelet Count 204 K/UL (150-450) Mean Platelet Volume 5.5 FL (6.5-10.1) Neutrophils (%) (Auto) 59.0 % (45.0-75.0) Lymphocytes (%) (Auto) 27.9 % (20.0-45.0) Monocytes (%) (Auto) 9.4 % (1.0-10.0) Eosinophils (%) (Auto) 2.3 % (0.0-3.0) Basophils (%) (Auto) 1.4 % (0.0-2.0) Sodium Level 139 mEQ/L (135-145) Potassium Level 4.2 mEQ/L (3.4-4.9) Chloride Level 99 mEQ/L (98-107) Carbon Dioxide Level 23 mEQ/L (20-30) Anion Gap 17 (5-15) Blood Urea Nitrogen 18 mg/dL (7-23) Creatinine 1.2 mg/dL (0.7-1.2) Estimat Glomerular Filtration Rate mL/min (>60) Glucose Level 133 mg/dL (74-106) Calcium Level 9.4 mg/dL (8.6-10.2) Last Vital Signs Date Time Temp Pulse Resp B/P Pulse Ox O2 Delivery O2 Flow Rate FiO2 10/08/16 12:16 18 111/64 97 Room Air 10/08/16 11:51 98.1 77 Disposition: HOME, SELF-CARE Condition: Stable Scripts Nitrofurantoin Monohyd/M-Cryst* (MACROBID 100 MG*) 100 Mg Capsule 100 MG ORAL EVERY 12 HOURS for 5 Days, #10 CAP Prov: Rocío Huizar 10/08/16 Patient Instructions: Urinary Tract Infection Additional Instructions: Take medications as directed. Follow up with UROLOGIST in 3-5 days Return sooner to ED if new symptoms occur, or current symptoms become worse. - Please note that this Emergency Department Report was dictated using [employer] designer technology software, occasionally this can lead to erroneous entry secondary to interpretation by the dictation equipment. Rocío Huizar Oct 08, 2016 13:11
[2016-10-08 13:19] LABS: APPEARANCE,URINE TURBID; KETONES,URINE 1+ (NEGATIVE); LEUKOCYTE ESTERASE ,URINE 1+ (NEGATIVE); NITRITE,URINE POSITIVE (NEGATIVE); PH,URINE 6.5 (4.5-8.0); PROTEIN,URINE 3+ (NEGATIVE); UROBILINOGEN,URINE NORMAL MG/DL (0.0-1.0)
[2016-10-08 13:39] LABS: BACTERIA,URINE MODERATE /HPF; RBC,URINE TNTC /HPF (0 - 0); SQUAMOUS EPITHELIAL CELL,UR FEW /LPF (NONE/OCC)
[2016-10-08 13:54] LABS: BASOPHILS % (AUTO) 1.4 % (0.0-2.0); EOSINOPHILS % (AUTO) 2.3 % (0.0-3.0); LYMPHOCYTES % (AUTO) 27.9 % (20.0-45.0); MEAN CORPUSCULAR HEMOGLOBIN 31.9 PG (27.0-31.0); MEAN CORPUSCULAR HGB CONC 33.2 G/DL (32.0-36.0); MEAN CORPUSCULAR VOLUME 96 FL (80-99); MEAN PLATELET VOLUME 5.5 FL (6.5-10.1); MONOCYTES % (AUTO) 9.4 % (1.0-10.0); PLATELET COUNT 204 K/UL (150-450); RED BLOOD COUNT 4.21 M/UL (4.70-6.10); RED CELL DISTRIBUTION WIDTH 12.5 % (11.6-14.8); WHITE BLOOD COUNT 4.2 K/UL (4.8-10.8)
[2016-10-08 14:04] LABS: ANION GAP 17 (5-15); CALCIUM 9.4 mg/dL (8.6-10.2); CARBON DIOXIDE 23 mEQ/L (20-30); CHLORIDE 99 mEQ/L (98-107); CREATININE 1.2 mg/dL (0.7-1.2); HEMOLYSIS 10; POTASSIUM 4.2 mEQ/L (3.4-4.9); SODIUM 139 mEQ/L (135-145)
[2016-10-08] MEDS ORDERED: NITROFURANTOIN100 M2 ORAL (14:29)
[2016-10-08 14:31] VITALS: BP 111/64
== END 2016-10-08 14:38 | disposition home or self-care (01) ==
LOC: EMR 13:45
DX: N39.0 Urinary tract infection, site not specified (principal); N30.91 Cystitis, unspecified with hematuria; I10 Essential (primary) hypertension
CPT/HCPCS: 36415; 80048; 81003; 85025; 87086; 99283

== ENCOUNTER 2016-10-12 17:23 | Emergency (ER) | payer MEDICARE, MEDICAID ==
[~2016-10-12] VITALS: Ht 170.2 cm; Wt 66.7 kg
[~2016-10-12 17:23] MED LIST changes: +NITROFURANTOIN100 M2 ORAL
--- NOTE | 2016-10-12 17:53 | Emergency Room Report ---
History of Present Illness General Chief Complaint: Male Urogenital Problems Source: Family Member Present Illness HPI Patient presents with several months of hematuria. Now with dysuria. No fevers , NVD, back or flank pain. No dizziness, dyspnea, chest pain, rashes. Recent hospitalization for same with urinary retention and some renal failure. Improved with vega, though hematuria persisted. Seen 10/08 and put on Macrobid. No significant pyuria. Renal function good. Also H/H good. Had renal ultrasound 09/29/16. Impression: Negative for hydronephrosis Echogenic focus in the periphery of the left renal sinus. Most likely artifactual, as no left renal calculi are demonstrated on earlier CT scan No findings to suggest etiology of stated clinical history of hematuria Equivocal minimal bladder wall thickening. If real could indicate mild cystitis changes. Correlate with clinical findings He was treated with vega and had urologic consultation suggesting cystoscopy ( not yet performed). Family displeased with prior urologist. Allergies: Coded Allergies: No Known Allergies (Unverified , 09/20/16) Patient History Past Medical History: see triage record Social History Narrative Reviewed Nursing Documentation: PMH: Agreed, PSxH: Agreed Nursing Documentation-PMH Past Medical History: No History, Except For Hx Cardiac Problems: No - unspecified prostate problem Hx Hypertension: Yes Hx Cancer: No Hx Gastrointestinal Problems: No Hx Neurological Problems: No Review of Systems All Other Systems: negative except mentioned in HPI Physical Exam Vital Signs Date Time Temp Pulse Resp B/P Pulse Ox O2 Delivery O2 Flow Rate FiO2 10/12/16 17:39 98.8 80 16 117/63 100 Room Air Sp02 EP Interpretation: reviewed, normal General Appearance: well appearing, no apparent distress, GCS 15 Head: normocephalic Eyes: bilateral eye PERRL, bilateral eye normal inspection ENT: moist mucus membranes Neck: supple Respiratory: lungs clear, normal breath sounds Cardiovascular #1: regular rate, rhythm Cardiovascular #2: 2+ radial (R) Gastrointestinal: normal inspection, normal bowel sounds, non tender, no mass, non-distended Genitourinary: normal inspection, penis normal Musculoskeletal: back normal, gait/station normal, normal range of motion Neurologic: alert, oriented x3, grossly normal Psychiatric: mood/affect normal Skin: normal inspection, warm/dry Medical Decision Making Diagnostic Impression: Primary Impression: Hematuria ER Course Patient with hematuria and dysuria. Ddx: UTI, bladder mass, renal mass, prostatic bleeding amongst others. Not appear toxic or with pallor. Recent labs. Need to check urine. Will treat with pyuria. Reviewed old records and recent labs 10/08. H/H 13.4, 40.5, BUN 18, creat 1.2. Patient improved with pyridium. Advised family to follow up with PMD and that if they are not pleased with urologist to request new one. Cystoscopy indicated. No evidence of UTI or obstruction. Patient stable for outpatient observation and treatment. Laboratory Tests Test 10/12/16 18:04 Urine Color Red Urine Appearance Very cloudy Urine pH 6.5 (4.5-8.0) Urine Specific [place] 1.010 (1.005-1.035) Urine Protein 3+ (NEGATIVE) H Urine Glucose (UA) Negative (NEGATIVE) Urine Ketones Negative (NEGATIVE) Urine Occult Blood 5+ (NEGATIVE) H Urine Nitrite Negative (NEGATIVE) Urine Bilirubin Negative (NEGATIVE) Urine Urobilinogen Normal MG/DL (0.0-1.0) Urine Leukocyte Esterase 1+ (NEGATIVE) H Urine RBC Tntc /HPF (0 - 0) H Urine WBC 0-2 /HPF (0 - 0) Urine Squamous Epithelial Cells None /LPF (NONE/OCC) Urine Bacteria Moderate /HPF (NONE) H Last Vital Signs Date Time Temp Pulse Resp B/P Pulse Ox O2 Delivery O2 Flow Rate FiO2 10/12/16 20:21 98.7 84 15 121/64 100 Room Air Status: improved Disposition: HOME, SELF-CARE Condition: Improved Scripts Phenazopyridine Hcl* (PYRIDIUM*) 200 Mg Tablet 200 MG ORAL BID, #14 TAB 0 Refills Prov: Sukhwinder Garner M.D. 10/12/16 Sukhwinder Garner M.D. Oct 12, 2016 17:53
[2016-10-12] MEDS ORDERED: Phenazopyridine 200mg tab ORAL ONE (18:00)
[2016-10-12 18:25] LABS: APPEARANCE,URINE VERY CLOUDY; KETONES,URINE NEGATIVE (NEGATIVE); LEUKOCYTE ESTERASE ,URINE 1+ (NEGATIVE); NITRITE,URINE NEGATIVE (NEGATIVE); PH,URINE 6.5 (4.5-8.0); PROTEIN,URINE 3+ (NEGATIVE); UROBILINOGEN,URINE NORMAL MG/DL (0.0-1.0)
[2016-10-12 19:01] LABS: RBC,URINE TNTC /HPF (0 - 0)
[2016-10-12 19:02] LABS: BACTERIA,URINE MODERATE /HPF; WBC,URINE 0-2 /HPF (0 - 0)
[2016-10-12] MEDS ORDERED: PHENAZOPYRIDIN200 MG ORAL (20:13)
[2016-10-12 20:20] VITALS: BP 121/64
[2016-10-12 20:21] VITALS: BP 121/64
== END 2016-10-12 20:22 | disposition home or self-care (01) ==
LOC: EMR 18:43
DX: R31.9 Hematuria, unspecified (principal); R30.0 Dysuria; I10 Essential (primary) hypertension
CPT/HCPCS: 81003; 87086; 99283

== ENCOUNTER 2016-10-19 20:24 | Emergency (ER) | payer MEDICARE, MEDICAID ==
[~2016-10-19] VITALS: Ht 170.2 cm; Wt 66.2 kg
[~2016-10-19 20:24] MED LIST changes: +PHENAZOPYRIDIN200 MG ORAL
[2016-10-19 20:51] VITALS: BP 122/64
[2016-10-19] MEDS ORDERED: KEFLEX500 MG ORAL (21:14)
[2016-10-19] MEDS ORDERED: Cephalexin 500mg cap ORAL ONE (21:15)
--- NOTE | 2016-10-19 21:15 | Emergency Room Report ---
History of Present Illness General Chief Complaint: Male Urogenital Problems Source: Patient, Family Member Present Illness HPI This is an 86 year-old [place] male with a history of hematuria. His been ongoing for over a month. He's been admitted here for it before. CT scan showed enlarged prostate. Ultrasound unremarkable. He's arty followup with urologist. He's been on multiple antibiotics already. He is scheduled for a cystoscopy in the next week or so. He still has hematuria and some mild suprapubic pain. He was concerned so so he came in. No clots. Denies any fever or chills. Denies any nausea or vomiting. Allergies: Coded Allergies: No Known Allergies (Unverified , 09/20/16) Patient History Past Medical History: see triage record, old chart reviewed Past Surgical History: other Pertinent Family History: none Social History: Denies: smoking Immunizations: other Reviewed Nursing Documentation: PMH: Agreed, PSxH: Agreed Nursing Documentation-PMH Past Medical History: No History, Except For Hx Cardiac Problems: No - unspecified prostate problem Hx Hypertension: Yes Hx Cancer: No Hx Gastrointestinal Problems: No Hx Neurological Problems: No Review of Systems Eye: Denies: blurred vision, eye pain ENT: Denies: ear pain, nose congestion, throat swelling Respiratory: Denies: cough, shortness of breath Cardiovascular: Denies: chest pain, palpitations Gastrointestinal: Denies: abdominal pain, diarrhea, nausea, vomiting Genitourinary: Reports: hematuria Musculoskeletal: Denies: back pain, joint pain Skin: Denies: rash Neurological: Denies: headache, numbness Endocrine: Denies: increased thirst, increased urine Hematologic/Lymphatic: Denies: easy bruising All Other Systems: negative except mentioned in HPI Physical Exam Vital Signs Date Time Temp Pulse Resp B/P Pulse Ox O2 Delivery O2 Flow Rate FiO2 10/19/16 20:41 97.9 91 14 122/64 99 Room Air vitals normal Sp02 EP Interpretation: reviewed, normal General Appearance: well appearing, no apparent distress, alert Head: normocephalic, atraumatic Eyes: bilateral eye EOMI, bilateral eye PERRL ENT: hearing grossly normal, normal pharynx Neck: full range of motion, supple, no meningismus Respiratory: chest non-tender, lungs clear, normal breath sounds Cardiovascular #1: regular rate, rhythm, no murmur Gastrointestinal: normal bowel sounds, non tender, no mass, no organomegaly, no bruit, non-distended Musculoskeletal: back normal, gait/station normal, normal range of motion Psychiatric: mood/affect normal Skin: warm/dry Medical Decision Making Diagnostic Impression: Primary Impression: Hematuria Additional Impression: UTI (urinary tract infection) Qualified Codes: N30.01 - Acute cystitis with hematuria ER Course Patient presents with hematuria. He's been workup for it. Concerning for infection versus neoplastic process. He will need a cystoscopy. This is scheduled already. We'll go ahead and put him on antibiotics. Urinating without difficulty. No evidence of retention. He sprained his to his and patient. Reassure him that as long as he is no fever or urinary retention, no need to go back to the ER. He'll need followup with urologist for cystoscopy. Last Vital Signs Date Time Temp Pulse Resp B/P Pulse Ox O2 Delivery O2 Flow Rate FiO2 10/19/16 20:41 97.9 91 14 122/64 99 Room Air Status: unchanged Disposition: HOME, SELF-CARE Condition: Stable Scripts Cephalexin* (KEFLEX*) 500 Mg Capsule 500 MG ORAL TID, #21 CAP 0 Refills Prov: BONITA LOPEZ M.D. 10/19/16 Additional Instructions: Follow up with your urologist as scheduled. You need to keep your cystoscopy appointment. Return if unable to urinate or having fever. BONITA LOPEZ M.D. Oct 19, 2016 21:15
[2016-10-19 21:45] VITALS: BP 122/64
== END 2016-10-19 21:50 | disposition home or self-care (01) ==
LOC: EMR 21:28
DX: R31.9 Hematuria, unspecified (principal); N30.01 Acute cystitis with hematuria; N40.0 Benign prostatic hyperplasia without lower urinary tract symptoms; I10 Essential (primary) hypertension
CPT/HCPCS: 87086; 99283

== ENCOUNTER 2016-11-06 18:44 | Emergency (ER) | payer MEDICARE, MEDICAID ==
[~2016-11-06] VITALS: Ht 177.8 cm; Wt 68.0 kg
[~2016-11-06 18:44] MED LIST changes: +KEFLEX500 MG ORAL
[2016-11-06 19:29] VITALS: BP 109/49
[2016-11-06 19:56] LABS: APPEARANCE,URINE CLEAR; KETONES,URINE NEGATIVE (NEGATIVE); LEUKOCYTE ESTERASE ,URINE 1+ (NEGATIVE); NITRITE,URINE NEGATIVE (NEGATIVE); PH,URINE 6 (4.5-8.0); PROTEIN,URINE NEGATIVE (NEGATIVE); UROBILINOGEN,URINE NORMAL MG/DL (0.0-1.0)
[2016-11-06 20:06] LABS: BACTERIA,URINE FEW /HPF
[2016-11-06] MEDS ORDERED: ACETAMINOPHEN-1 EAC1 ORAL (20:22)
[2016-11-06 20:29] VITALS: BP 109/49
--- NOTE | 2016-11-08 07:25 | Emergency Room Report ---
History of Present Illness General Chief Complaint: Abdominal Pain Source: Patient Present Illness HPI 86-year-old male presents to ED for evaluation. at bedside states that patient is having lower abdominal pain x3 days. Patient noted to have history of prostate cancer. Noted to have hematuria as per PMD. No obvious blood as per . Pain is throbbing, 5/10, nonradiating. No other aggravating or relieving factors. Denies nausea or vomiting. Denies difficulty urinating. Notes passing flatus and having bowel movements. Denies any other associated symptom Allergies: Coded Allergies: No Known Allergies (Unverified , 09/20/16) Patient History Past Medical History: HTN Past Surgical History: none Pertinent Family History: none Social History: Denies: alcohol use, drug use, smoking Immunizations: UTD Reviewed Nursing Documentation: PMH: Agreed, PSxH: Agreed Nursing Documentation-PMH Past Medical History: No History, Except For Hx Cardiac Problems: No - unspecified prostate problem Hx Hypertension: Yes Hx Cancer: No Hx Gastrointestinal Problems: No Hx Neurological Problems: No Review of Systems All Other Systems: negative except mentioned in HPI Physical Exam Vital Signs Date Time Temp Pulse Resp B/P Pulse Ox O2 Delivery O2 Flow Rate FiO2 11/06/16 18:55 97.5 76 15 116/57 98 Sp02 EP Interpretation: reviewed, normal General Appearance: no apparent distress, alert, GCS 15, non-toxic Head: normocephalic Eyes: bilateral eye PERRL, bilateral eye normal inspection ENT: normal ENT inspection Neck: normal inspection Respiratory: chest non-tender, lungs clear, normal breath sounds, speaking full sentences Cardiovascular #1: regular rate, rhythm, no edema Gastrointestinal: normal bowel sounds, non tender, soft, non-distended, no guarding, no rebound Rectal: deferred Genitourinary: no CVA tenderness Musculoskeletal: normal inspection Neurologic: alert, oriented x3, responsive, motor strength/tone normal, sensory intact, speech normal Psychiatric: normal inspection Skin: normal inspection Lymphatic: normal inspection Medical Decision Making Diagnostic Impression: Primary Impression: Hematuria Additional Impression: BPH (benign prostatic hyperplasia) Qualified Codes: N40.0 - Benign prostatic hyperplasia without lower urinary tract symptoms ER Course Hospital Course 86-year-old male presents to ED complaining of hematuria with suprapubic pain. h /o prostate cancer Differential diagnoses include: UTI, cystitis, pyelonephritis Clinical course Patient placed on stretcher. After initial history and physical I reviewed EMR. Patient has multiple recent visits to ED with similar presentation. Patient had workup which showed some hematuria and questionable UTI. Urine cultures proved negative results. patient had been placed on antibiotics at that time. I ordered UA UA noted to have some blood, no bacteria . Given patient's recent patient is the same as last few visits I received the reason to escalate the workup or provide antibiotics at this time. Patient can followup with PMD. Reassurance given. Diagnosis - hematuria, BPH Stable and discharged home with Rx Tylenol #3. Instructed to followup with PMD. Return to ED if symptoms recur or worsen Labs Test 11/06/16 19:02 Urine Color Pale yellow Urine Appearance Clear Urine pH 6 (4.5-8.0) Urine Specific [place] 1.010 (1.005-1.035) Urine Protein Negative (NEGATIVE) Urine Glucose (UA) Negative (NEGATIVE) Urine Ketones Negative (NEGATIVE) Urine Occult Blood 3+ (NEGATIVE) Urine Nitrite Negative (NEGATIVE) Urine Bilirubin Negative (NEGATIVE) Urine Urobilinogen Normal MG/DL (0.0-1.0) Urine Leukocyte Esterase 1+ (NEGATIVE) Urine RBC 5-10 /HPF (0 - 0) Urine WBC 2-4 /HPF (0 - 0) Urine Squamous Epithelial Cells None /LPF (NONE/OCC) Urine Bacteria Few /HPF (NONE) Last Vital Signs Date Time Temp Pulse Resp B/P Pulse Ox O2 Delivery O2 Flow Rate FiO2 11/06/16 20:29 97.5 61 16 109/49 97 Status: improved Disposition: HOME, SELF-CARE Condition: Stable Scripts Acetaminophen With Codeine (T#3) (TYLENOL #3 TAB*) Y Tab 1 TAB ORAL Q8H Y for For Pain, #20 TAB Prov: HECTOR SULTANA M.D. 11/06/16 Referrals: NOT CHOSEN [facility]/,REFERRING (PCP) Patient Instructions: Hematuria, Adult HECTOR SULTANA M.D. Nov 08, 2016 07:25
== END 2016-11-06 20:29 | disposition home or self-care (01) ==
LOC: EMR 19:35
DX: R30.0 Dysuria (principal); N40.0 Benign prostatic hyperplasia without lower urinary tract symptoms; I10 Essential (primary) hypertension
CPT/HCPCS: 81003; 99283

== ENCOUNTER 2017-08-28 10:05 | Emergency (ER) | payer MEDICAID, MEDICARE ==
[~2017-08-28] VITALS: Ht 167.6 cm; Wt 72.6 kg
[~2017-08-28 10:05] MED LIST changes: +ACETAMINOPHEN-1 EAC1 ORAL
[2017-08-28 10:15] VITALS: BP 169/58
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
[2017-08-28] MEDS ORDERED: IBUPROFEN600 MG ORAL (10:49)
--- NOTE | 2017-08-28 11:06 | Diagnostic Imaging Report ---
Indication: Right ankle pain status post fall Technique: 3 views of the right ankle Comparison: none Findings: No acute fractures. No dislocations. Joint spaces are preserved. Normal mineralization. No radiopaque foreign body. Impression: Negative
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
[2017-08-28 11:27] VITALS: BP 167/46
== END 2017-08-28 11:27 | disposition home or self-care (01) ==
LOC: EDBD 10:05 → EMR 10:35
DX: M25.571 Pain in right ankle and joints of right foot (principal); R07.9 Chest pain, unspecified; I10 Essential (primary) hypertension; S90.511A Abrasion, right ankle, initial encounter; V03.99XA Pedestrian with other conveyance injured in collision with car, pick-up truck or van, unspecified whether traffic or nontraffic accident, initial encounter; Y93.01 Activity, walking, marching and hiking; Y92.410 Unspecified street and highway as the place of occurrence of the external cause
CPT/HCPCS: 71045; 99284